=== PATIENT | female | born 1980 | race Caucasian/White ===

== ENCOUNTER 2017-08-28 21:26 | Emergency (ER) | payer MEDICARE, MEDICAID ==
[2017-08-28] MEDS ORDERED: Adacel (T-DAP) 0.5 ML VIAL ONE (21:35)
[2017-08-28] MEDS ORDERED: Erythromycin Base 0.5% Oint 1 GM TUBE ONE (22:03)
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
== END 2017-08-28 22:24 ==
LOC: ERS 21:26
DX: S01.01XA Laceration without foreign body of scalp, initial encounter (principal); H10.213 Acute toxic conjunctivitis, bilateral; Z23 Encounter for immunization; F32.9 Major depressive disorder, single episode, unspecified; F17.210 Nicotine dependence, cigarettes, uncomplicated; F43.10 Post-traumatic stress disorder, unspecified; Z79.899 Other long term (current) drug therapy; Y00.XXXA Assault by blunt object, initial encounter; Y92.149 Unspecified place in prison as the place of occurrence of the external cause
CPT/HCPCS: 12011; 70450; 72125; 90471; 90715; 99406; G0390

== ENCOUNTER 2018-06-09 15:57 | Emergency (ER) | payer MEDICAID, MEDICARE, SELFPAY ==
--- NOTE | 2018-06-09 17:15 | RAD ---
PORTABLE AP CHEST X-RAY 06/09/18 HISTORY: Chest pain for two hours. COMPARISON: 02/18/16. FINDINGS: A CT injectable right internal jugular vein Mediport catheter is in place with tip overlying the dist al SVC. The cardiac silhouette and pulmonary vasculature are within normal limits. The lungs are tyesha r. Osseous structures are intact. There has been no other interval change from prior exam. IMPRESSION: No acute cardiopulmonary process. POS: [facility]
[2018-06-09 17:41] LABS: #Basophils 0.1 thou/uL (0.0-0.2); #Eosinphils 0.1 thou/uL (0.0-0.7); #Lymphocytes 3.2 thou/uL (1.20-3.40); #Monocytes 0.8 thou/uL (0.11-0.59); #Neutrophils 4.2 thou/uL (1.40-6.50); %Eosinophils 0.7 % (0.0-10.0); %Neutrophils 50.4 % (42.0-75.0); Hemoglobin 13.2 g/dL (12.0-16.0); Mean Corpuscular Hemoglobin 35.4 pg (27.0-31.0); Mean Platelet Volume 8.4 fL (7.4-10.4); Platelet Count 291 thou/uL (130-400); RBC Distribution Width 11.3 % (11.5-14.5); Red Blood Cell (RBC) Count 3.73 mill/uL (4.20-5.40); White Blood Cell (WBC) Count 8.3 thou/uL (4.8-10.8)
[2018-06-09 17:58] LABS: ALT (SGPT) 7 U/L (8-55); AST (SGOT) 18 U/L (5-34); Albumin 4.5 g/dL (3.5-5.0); Alkaline Phosphatase 53 U/L (40-150); Anion Gap 11 mmol/L (10-20); BUN (Urea Nitrogen) 11 mg/dL (7.0-18.7); Bilirubin, Total 0.3 mg/dL (0.2-1.2); Calc. Creatinine Clearance 0 mL/min (70-130); Calcium 9.9 mg/dL (7.8-10.44); Carbon Dioxide 24 mmol/L (22-29); Chloride 106 mmol/L (98-107); Estimated GFR-MDRD 80; Globulin 3.2 g/dL (2.4-3.5); Glucose 91 mg/dL (70-105); Potassium 3.8 mmol/L (3.5-5.1); Protein, Total 7.7 g/dL (6.0-8.3); Sodium 137 mmol/L (136-145)
[2018-06-09 18:03] LABS: CKMB 1.5 ng/mL (0-6.6); Troponin I Less than 0.010 ng/mL (< 0.028)
[2018-06-09 18:44] LABS: Acetaminophen Less than 6.0 mcg/mL (10.0-30.0); Alcohol Less than 10 mg/dL (Less than 10); Salicylate Less than 8.0 mg/dL (15.0-30.0)
[2018-06-09 19:36] LABS: Amphetamine Not Detected (NotDetected); Barbiturates Screen Not Detected (NotDetected); Benzodiazepine Screen Not Detected (NotDetected); Cocaine Metabolite Screen Not Detected (NotDetected); Medtox Control Line Valid? VALID (VALID); Medtox Reader # READER 1; Methadone Not Detected (NotDetected); Methamphetamine Not Detected (NotDetected); Opiate Screen Not Detected (NotDetected); Oxycodone Screen Not Detected (NotDetected); Phencyclidine (PCP) Not Detected (NotDetected); THC/Cannabinoid Screen Not Detected (NotDetected); Tricyclic Screen Not Detected (NotDetected)
[2018-06-09 19:52] LABS: Bilirubin Negative (Negative); Blood, Urine Negative (Negative); Clarity CLEAR (Clear); Glucose, Urine (Dipstick) Negative (Negative); Leukocyte Negative (Negative); Nitrite Negative (Negative); Protein, Urine (Dipstick) Negative (Neg-Trace); Specific Gravity, Urine 1.005 (1.002-1.036); Urobilinogen 0.2 mg/dL (0.2-1.0); pH, Urine 6.5 (5.0-9.0)
[2018-06-09] MEDS ORDERED: Lidocaine Viscous Sol 2% 15 ml UD Cup ONE (20:24)
[2018-06-09] MEDS ORDERED: Mag-Al 1200 mg/1200 mg/30 ML UDCUP ONE (20:24)
--- NOTE | 2018-06-12 16:26 | EKG ---
Test Reason : CHESTPAIN Blood Pressure : / mmHG Vent. Rate : 086 BPM Atrial Rate : 086 BPM P-R Int : 086 ms QRS Dur : 084 ms QT Int : 360 ms P-R-T Axes : 033 079 072 degrees QTc Int : 430 ms Sinus rhythm with short NV Nonspecific T wave abnormality Abnormal ECG Confirmed by YUVAL HAMILTON ([id number]), international editorial producer JM OWEN ([id number]) on 06/12/2018 4:26:17 PM Referred By: JOY Confirmed By:YUVAL HAMILTON
== END 2018-06-09 23:11 | disposition home or self-care (01) ==
LOC: EEVIPCON 15:57 → ERS 15:57
DX: R07.9 Chest pain, unspecified (principal); F31.9 Bipolar disorder, unspecified; E03.9 Hypothyroidism, unspecified; J45.909 Unspecified asthma, uncomplicated; F17.210 Nicotine dependence, cigarettes, uncomplicated; Z79.899 Other long term (current) drug therapy
CPT/HCPCS: 36415; 71045; 80053; 80306; 80307; 81003; 82553; 84443; 84484; 85025; 93005

== ENCOUNTER 2018-06-26 10:10 | Emergency (ER) | payer SELFPAY ==
[2018-06-26 11:40] LABS: #Basophils 0.1 thou/uL (0.0-0.2); #Eosinphils 0.1 thou/uL (0.0-0.7); #Lymphocytes 1.5 thou/uL (1.20-3.40); #Monocytes 0.7 thou/uL (0.11-0.59); #Neutrophils 3.7 thou/uL (1.40-6.50); %Basophils 0.9 % (0.0-1.0); %Eosinophils 2.1 % (0.0-10.0); %Lymphocytes 24.6 % (21.0-51.0); %Monocytes 11.4 % (0.0-10.0); Hemoglobin 11.9 g/dL (12.0-16.0); Mean Corpuscular HGB CONC 34.7 g/dL (32.0-36.0); Mean Corpuscular Hemoglobin 35.5 pg (27.0-31.0); Mean Platelet Volume 7.9 fL (7.4-10.4); Platelet Count 336 thou/uL (130-400); RBC Distribution Width 11.2 % (11.5-14.5); Red Blood Cell (RBC) Count 3.35 mill/uL (4.20-5.40); White Blood Cell (WBC) Count 6.1 thou/uL (4.8-10.8)
[2018-06-26 11:56] LABS: ALT (SGPT) 17 U/L (8-55); AST (SGOT) 36 U/L (5-34); Acetaminophen Less than 6.0 mcg/mL (10.0-30.0); Albumin 3.5 g/dL (3.5-5.0); Alcohol Less than 10 mg/dL (Less than 10); Alkaline Phosphatase 55 U/L (40-150); Anion Gap 10 mmol/L (10-20); BUN (Urea Nitrogen) 8 mg/dL (7.0-18.7); Bilirubin, Total 0.2 mg/dL (0.2-1.2); CK (CPK) 673 U/L (29-168); Calc. Creatinine Clearance 0 mL/min (70-130); Calcium 8.6 mg/dL (7.8-10.44); Carbon Dioxide 20 mmol/L (22-29); Chloride 110 mmol/L (98-107); Estimated GFR-MDRD 67; Globulin 2.8 g/dL (2.4-3.5); Glucose 112 mg/dL (70-105); Lipase 30 U/L (8-78); Potassium 3.2 mmol/L (3.5-5.1); Protein, Total 6.3 g/dL (6.0-8.3); Salicylate Less than 8.0 mg/dL (15.0-30.0); Sodium 137 mmol/L (136-145)
[2018-06-26 11:56] LABS: Bilirubin Negative (Negative); Blood, Urine Negative (Negative); Clarity TURBID (Clear); Glucose, Urine (Dipstick) Negative (Negative); Leukocyte Negative (Negative); Nitrite Negative (Negative); Protein, Urine (Dipstick) Negative (Neg-Trace); Specific Gravity, Urine 1.009 (1.002-1.036); Urobilinogen 0.2 mg/dL (0.2-1.0)
[2018-06-26 11:59] LABS: CKMB 6.6 ng/mL (0-6.6); Troponin I Less than 0.010 ng/mL (< 0.028)
--- NOTE | 2018-06-26 12:37 | RAD ---
FRONTAL VIEW CHEST: Date: 06/26/18 COMPARISON: 06/09/18. CLINICAL HISTORY: Weakness. FINDINGS: Right-sided venous port is again seen. Density from presumed overlying breast implants overlies the l ower chest bilaterally. There is no lobar consolidation, discrete pneumothorax, or evidence of pleura l effusion. IMPRESSION: No focal consolidation. POS: [facility]
== END 2018-06-26 14:16 | disposition home or self-care (01) ==
LOC: ERS 10:10
DX: R53.1 Weakness (principal); R11.2 Nausea with vomiting, unspecified; Z71.6 Tobacco abuse counseling; E03.9 Hypothyroidism, unspecified; J45.909 Unspecified asthma, uncomplicated; F43.10 Post-traumatic stress disorder, unspecified; F17.210 Nicotine dependence, cigarettes, uncomplicated; F31.9 Bipolar disorder, unspecified; Z79.899 Other long term (current) drug therapy
CPT/HCPCS: 71045; 80053; 80307; 81003; 82550; 82553; 83690; 83880; 84484; 85025; 93005; 96360; 96361; 99406; J1642

== ENCOUNTER 2018-06-26 17:16 | Inpatient (IN) | payer MEDICARE, SELFPAY ==
[2018-06-26] MEDS ORDERED: Activated Charcoal/Sorbitol 25 GM/120 ML TUBE ONE (17:29)
[2018-06-26 18:35] LABS: #Eosinphils 0.1 thou/uL (0.0-0.7); #Lymphocytes 2.3 thou/uL (1.20-3.40); #Monocytes 0.9 thou/uL (0.11-0.59); %Basophils 0.7 % (0.0-1.0); %Eosinophils 2.3 % (0.0-10.0); %Lymphocytes 35.2 % (21.0-51.0); %Monocytes 14.3 % (0.0-10.0); %Neutrophils 47.5 % (42.0-75.0); Hemoglobin 11.2 g/dL (12.0-16.0); Mean Corpuscular HGB CONC 34.8 g/dL (32.0-36.0); Mean Corpuscular Hemoglobin 35.9 pg (27.0-31.0); Mean Platelet Volume 8.1 fL (7.4-10.4); Platelet Count 344 thou/uL (130-400); RBC Distribution Width 11.1 % (11.5-14.5); Red Blood Cell (RBC) Count 3.13 mill/uL (4.20-5.40); White Blood Cell (WBC) Count 6.4 thou/uL (4.8-10.8)
[2018-06-26 18:52] LABS: Bilirubin Negative (Negative); Blood, Urine Negative (Negative); Clarity CLEAR (Clear); Glucose, Urine (Dipstick) Negative (Negative); Leukocyte Negative (Negative); Nitrite Negative (Negative); Protein, Urine (Dipstick) Negative (Neg-Trace); Specific Gravity, Urine 1.006 (1.002-1.036); Urobilinogen 0.2 mg/dL (0.2-1.0); pH, Urine 6.5 (5.0-9.0)
[2018-06-26 19:02] LABS: Amphetamine Not Detected (NotDetected); Barbiturates Screen Not Detected (NotDetected); Benzodiazepine Screen Not Detected (NotDetected); Cocaine Metabolite Screen Not Detected (NotDetected); Medtox Control Line Valid? VALID (VALID); Medtox Reader # READER 4; Methadone Not Detected (NotDetected); Methamphetamine Not Detected (NotDetected); Opiate Screen Not Detected (NotDetected); Oxycodone Screen Not Detected (NotDetected); Phencyclidine (PCP) Not Detected (NotDetected); THC/Cannabinoid Screen Not Detected (NotDetected); Tricyclic Screen Not Detected (NotDetected)
[2018-06-26 19:04] LABS: ALT (SGPT) 18 U/L (8-55); AST (SGOT) 31 U/L (5-34); Acetaminophen Less than 6.0 mcg/mL (10.0-30.0); Albumin 3.3 g/dL (3.5-5.0); Alcohol Less than 10 mg/dL (Less than 10); Alkaline Phosphatase 51 U/L (40-150); Anion Gap 13 mmol/L (10-20); BUN (Urea Nitrogen) 5 mg/dL (7.0-18.7); Bilirubin, Total Less than 0.2 mg/dL (0.2-1.2); Calc. Creatinine Clearance 0 mL/min (70-130); Calcium 8.5 mg/dL (7.8-10.44); Carbon Dioxide 19 mmol/L (22-29); Chloride 111 mmol/L (98-107); Estimated GFR-MDRD 72; Globulin 2.7 g/dL (2.4-3.5); Glucose 92 mg/dL (70-105); Potassium 2.9 mmol/L (3.5-5.1); Salicylate Less than 8.0 mg/dL (15.0-30.0); Sodium 140 mmol/L (136-145)
[2018-06-26] MEDS ORDERED: Potassium Chloride 20 MEQ TAB ONE (20:28)
[2018-06-26] MEDS ORDERED: Ondansetron HCl/PF 4 MG/2 ML Vial ONE (21:47)
[2018-06-26] MEDS ORDERED: Morphine 2 MG/ML SYRINGE SLOW IVP SCH (22:45)
[2018-06-26] MEDS ORDERED: Potassium Chloride 20 MEQ in Premix Bag 1 BAG IVPB SCH (22:45)
[2018-06-26 22:49] VITALS: BMI 28.8
[2018-06-26] MEDS ORDERED: Sodium Chloride 0.9% 10 ML ONE (23:19)
[2018-06-26] MEDS ORDERED: Pantoprazole 40 MG VIAL IVP SCH (23:30)
[2018-06-27 06:06] LABS: #Basophils 0.1 thou/uL (0.0-0.2); #Eosinphils 0.7 thou/uL (0.0-0.7); #Lymphocytes 3.3 thou/uL (1.20-3.40); #Monocytes 0.8 thou/uL (0.11-0.59); #Neutrophils 3.6 thou/uL (1.40-6.50); %Basophils 0.8 % (0.0-1.0); %Eosinophils 8.6 % (0.0-10.0); %Lymphocytes 38.7 % (21.0-51.0); %Monocytes 9.6 % (0.0-10.0); %Neutrophils 42.3 % (42.0-75.0); Hemoglobin 10.8 g/dL (12.0-16.0); Mean Corpuscular HGB CONC 33.7 g/dL (32.0-36.0); Mean Corpuscular Hemoglobin 34.9 pg (27.0-31.0); Mean Platelet Volume 8.1 fL (7.4-10.4); Platelet Count 346 thou/uL (130-400); RBC Distribution Width 11.3 % (11.5-14.5); White Blood Cell (WBC) Count 8.6 thou/uL (4.8-10.8)
[2018-06-27 06:20] LABS: Anion Gap 10 mmol/L (10-20); BUN (Urea Nitrogen) 4 mg/dL (7.0-18.7); Calc. Creatinine Clearance 93 mL/min (70-130); Calcium 7.7 mg/dL (7.8-10.44); Carbon Dioxide 19 mmol/L (22-29); Chloride 115 mmol/L (98-107); Estimated GFR-MDRD 60; Glucose 99 mg/dL (70-105); Sodium 141 mmol/L (136-145)
[2018-06-27] MEDS ORDERED: Potassium Chloride 20 MEQ TAB PO SCH (08:00)
[2018-06-27 08:27] LABS: Magnesium 1.7 mg/dL (1.6-2.6); Phosphorus 2.4 mg/dL (2.3-4.7)
[2018-06-27] MEDS: Pantoprazole 40 MG VIAL IVP SCH ×2 (08:37→20:47)
[2018-06-27] MEDS ORDERED: Potassium Chloride 20 MEQ in Premix Bag 1 BAG IVPB SCH (09:00)
--- NOTE | 2018-06-27 15:12 | PDOC.EVN ---
Event Note - Event Note Event Note: pt seen and examined doing well. will continue to monitor. will also consult Mental health.
[2018-06-27] MEDS ORDERED: Atenolol 50 MG TAB PO SCH (20:15)
[2018-06-27] MEDS: busPIRone HCl 10 MG TAB PO SCH (20:45)
[2018-06-27] MEDS: ALPRAZolam 1 MG TAB PO PRN (20:46)
[2018-06-27] MEDS: Divalproex Sodium DR 500 MG TAB PO SCH (20:46)
[2018-06-27] MEDS: Citalopram 20 MG TAB PO SCH (20:46)
[2018-06-28] MEDS ORDERED: Levothyroxine Sodium 100 MCG TAB PO SCH (06:00)
[2018-06-28] MEDS: Lisinopril 20 MG TAB PO SCH (08:20)
[2018-06-28] MEDS: Pantoprazole 40 MG VIAL IVP SCH ×2 (08:21→22:32)
[2018-06-28] MEDS: busPIRone HCl 10 MG TAB PO SCH ×2 (08:21→20:23)
[2018-06-28] MEDS: Atenolol 50 MG TAB PO SCH (08:21)
[2018-06-28] MEDS: ALPRAZolam 1 MG TAB PO PRN ×2 (08:31→16:52)
[2018-06-28 12:09] LABS: #Basophils 0.1 thou/uL (0.0-0.2); #Eosinphils 0.3 thou/uL (0.0-0.7); #Lymphocytes 2.4 thou/uL (1.20-3.40); #Monocytes 0.2 thou/uL (0.11-0.59); #Neutrophils 4.8 thou/uL (1.40-6.50); %Basophils 1.2 % (0.0-1.0); %Eosinophils 4.3 % (0.0-10.0); %Lymphocytes 31.1 % (21.0-51.0); %Monocytes 2.9 % (0.0-10.0); %Neutrophils 60.5 % (42.0-75.0); Hemoglobin 10.8 g/dL (12.0-16.0); Mean Corpuscular HGB CONC 33.7 g/dL (32.0-36.0); Mean Corpuscular Hemoglobin 34.3 pg (27.0-31.0); Mean Platelet Volume 7.2 fL (7.4-10.4); Platelet Count 402 thou/uL (130-400); RBC Distribution Width 11.4 % (11.5-14.5); Red Blood Cell (RBC) Count 3.16 mill/uL (4.20-5.40); White Blood Cell (WBC) Count 7.9 thou/uL (4.8-10.8)
[2018-06-28 12:41] LABS: Anion Gap 11 mmol/L (10-20); BUN (Urea Nitrogen) Less than 4 mg/dL (7.0-18.7); Calc. Creatinine Clearance 129 mL/min (70-130); Calcium 8.3 mg/dL (7.8-10.44); Carbon Dioxide 22 mmol/L (22-29); Chloride 112 mmol/L (98-107); Estimated GFR-MDRD 87; Glucose 105 mg/dL (70-105); Potassium 3.2 mmol/L (3.5-5.1); Sodium 142 mmol/L (136-145)
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
[2018-06-28] MEDS ORDERED: Potassium Chloride 20 MEQ in Premix Bag 1 BAG IVPB SCH (14:00)
--- NOTE | 2018-06-28 16:51 | PDOC.PN ---
- Subjective Encounter Start Date: 06/28/18 Encounter Start Time: 10:30 Subjective: pt up in bed no complains - Objective Resuscitation Status: Resuscitation Status FULL:Full Resuscitation Vital Signs & Weight: Vital Signs (12 hours) Temp Pulse Resp BP BP Pulse Ox 06/28/18 11:55 62 18 163/84 H 97 06/28/18 08:21 72 181/91 H 06/28/18 08:20 181/91 H 06/28/18 08:18 97.2 F L 72 18 181/91 H 98 06/28/18 08:00 98 Weight Weight 173 lb 4.8 oz I&O: 06/27/18 06/28/18 06/29/18 06:59 06:59 06:59 Intake Total 370 1560 Output Total 50 Balance 320 1560 Result Diagrams: 06/28/18 12:00 06/28/18 12:00 Phys Exam - Physical Examination Neck: no nodes, no JVD, supple, full ROM Respiratory: no wheezing, no rales, no rhonchi, wheezing present, clear to auscultation bilateral Cardiovascular: RRR, no significant murmur, no rub, gallop, irregular Gastrointestinal: soft, non-tender, no distention, positive bowel sounds Dx/Plan (1) Suicidal ideations Code(s): R45.851 - SUICIDAL IDEATIONS Status: Acute (2) Overdose Code(s): T50.901A - POISONING BY UNSP DRUG/MEDS/BIOL SUBST, ACCIDENTAL, INIT Status: Acute - Plan will replace K and continue to monitor -: mental health consulted * . Review of Systems - Review of Systems Respiratory: negative: Cough, Dry, Shortness of Breath, Hemoptysis, SOB with Excertion, Pleuritic Pain, Sputum, Wheezing Cardiovascular: negative: chest pain, palpitations, orthopnea, paroxysmal nocturnal dyspnea, edema, light headedness, other Gastrointestinal: negative: Nausea, Vomiting, Abdominal Pain, Diarrhea, Constipation, Melena, Hematochezia, Other Genitourinary: negative: Dysuria, Frequency, Incontinence, Hematuria, Retention , Other - Medications/Allergies Allergies/Adverse Reactions: Allergies Allergy/AdvReac Type Severity Reaction Status Date / Time acetaminophen [From Tylenol] Allergy has liver Verified 06/26/18 23:06 tumor/hard on it adhesive Allergy Hives Verified 06/26/18 23:06 ketorolac tromethamine Allergy Hives Verified 06/26/18 23:06 [From Toradol] tramadol Allergy Hives Verified 06/26/18 23:06 Medications: Current Medications Alprazolam (Xanax) 2 mg PO Q8H PRN PRN Reason: Anxiety Last Admin: 06/28/18 08:31 Dose: 2 mg Atenolol (Tenormin) 50 mg PO DAILY [facility] Last Admin: 06/28/18 08:21 Dose: 50 mg Buspirone HCl (Buspar) 20 mg PO BID [facility] Last Admin: 06/28/18 08:21 Dose: 20 mg Citalopram Hydrobromide (Celexa) 20 mg PO HS [facility] Last Admin: 06/27/18 20:46 Dose: 20 mg Divalproex Sodium (Depakote) 1,500 mg PO HS [facility] Last Admin: 06/27/18 20:46 Dose: 1,500 mg Potassium Chloride 20 meq/ (Device) 100 mls @ 50 mls/hr IVPB NOW [facility] Stop: 06/28/18 18:00 Last Admin: 06/28/18 14:23 Dose: 100 mls Lisinopril (Zestril) 40 mg PO DAILY [facility] Last Admin: 06/28/18 08:20 Dose: 40 mg Pantoprazole Sodium (Protonix) 40 mg IVP Q12HR [facility] Last Admin: 06/28/18 08:21 Dose: 40 mg
--- NOTE | 2018-06-28 16:52 | PDOC.PN ---
- Subjective Encounter Start Date: 06/27/18 Encounter Start Time: 11:03 Subjective: pt up in bed no complains - Objective Resuscitation Status: Resuscitation Status FULL:Full Resuscitation Vital Signs & Weight: Vital Signs (12 hours) Temp Pulse Resp BP BP Pulse Ox 06/28/18 16:00 98.8 F 69 20 97 06/28/18 11:55 62 18 163/84 H 97 06/28/18 08:21 72 181/91 H 06/28/18 08:20 181/91 H 06/28/18 08:18 97.2 F L 72 18 181/91 H 98 06/28/18 08:00 98 Weight Weight 173 lb 4.8 oz I&O: 06/27/18 06/28/18 06/29/18 06:59 06:59 06:59 Intake Total 370 1560 Output Total 50 Balance 320 1560 Result Diagrams: 06/28/18 12:00 06/28/18 12:00 Phys Exam - Physical Examination Neck: no nodes, no JVD, supple, full ROM Respiratory: no wheezing, no rales, no rhonchi, wheezing present, clear to auscultation bilateral Cardiovascular: RRR, no significant murmur, no rub, gallop, irregular Gastrointestinal: soft, non-tender, no distention, positive bowel sounds Dx/Plan (1) Suicidal ideations Code(s): R45.851 - SUICIDAL IDEATIONS Status: Acute (2) Overdose Code(s): T50.901A - POISONING BY UNSP DRUG/MEDS/BIOL SUBST, ACCIDENTAL, INIT Status: Acute - Plan will replace K if creatinine is stable in am will consult Mental health -: continue ppi * . Review of Systems - Review of Systems Respiratory: negative: Cough, Dry, Shortness of Breath, Hemoptysis, SOB with Excertion, Pleuritic Pain, Sputum, Wheezing Cardiovascular: negative: chest pain, palpitations, orthopnea, paroxysmal nocturnal dyspnea, edema, light headedness, other Gastrointestinal: negative: Nausea, Vomiting, Abdominal Pain, Diarrhea, Constipation, Melena, Hematochezia, Other Genitourinary: negative: Dysuria, Frequency, Incontinence, Hematuria, Retention , Other - Medications/Allergies Allergies/Adverse Reactions: Allergies Allergy/AdvReac Type Severity Reaction Status Date / Time acetaminophen [From Tylenol] Allergy has liver Verified 06/26/18 23:06 tumor/hard on it adhesive Allergy Hives Verified 06/26/18 23:06 ketorolac tromethamine Allergy Hives Verified 06/26/18 23:06 [From Toradol] tramadol Allergy Hives Verified 06/26/18 23:06 Medications: Current Medications Alprazolam (Xanax) 2 mg PO Q8H PRN PRN Reason: Anxiety Last Admin: 06/28/18 08:31 Dose: 2 mg Atenolol (Tenormin) 50 mg PO DAILY [facility] Last Admin: 06/28/18 08:21 Dose: 50 mg Buspirone HCl (Buspar) 20 mg PO BID [facility] Last Admin: 06/28/18 08:21 Dose: 20 mg Citalopram Hydrobromide (Celexa) 20 mg PO HS [facility] Last Admin: 06/27/18 20:46 Dose: 20 mg Divalproex Sodium (Depakote) 1,500 mg PO HS [facility] Last Admin: 06/27/18 20:46 Dose: 1,500 mg Potassium Chloride 20 meq/ (Device) 100 mls @ 50 mls/hr IVPB NOW [facility] Stop: 06/28/18 18:00 Last Admin: 06/28/18 14:23 Dose: 100 mls Lisinopril (Zestril) 40 mg PO DAILY [facility] Last Admin: 06/28/18 08:20 Dose: 40 mg Pantoprazole Sodium (Protonix) 40 mg IVP Q12HR [facility] Last Admin: 06/28/18 08:21 Dose: 40 mg
[2018-06-28] MEDS: Citalopram 20 MG TAB PO SCH (20:23)
[2018-06-28] MEDS ORDERED: ALPRAZolam 1 MG TAB PO SCH (20:45)
[2018-06-28] MEDS ORDERED: Nicotine 21 MG PATCH TOP SCH (21:15)
[2018-06-28] MEDS ORDERED: Zolpidem Tartrate 5 MG TAB PO SCH (21:30)
[2018-06-28] MEDS: Divalproex Sodium DR 500 MG TAB PO SCH (21:31)
[2018-06-29] MEDS ORDERED: Levothyroxine Sodium 75 MCG TAB PO SCH (06:00)
[2018-06-29] MEDS: Pantoprazole 40 MG VIAL IVP SCH (08:40)
[2018-06-29 08:53] VITALS: BP 172/96; TEMP 98.2
[2018-06-29] MEDS: Atenolol 50 MG TAB PO SCH (08:53)
[2018-06-29] MEDS: ALPRAZolam 1 MG TAB PO PRN (08:54)
[2018-06-29] MEDS: Lisinopril 20 MG TAB PO SCH (08:54)
[2018-06-29] MEDS: busPIRone HCl 10 MG TAB PO SCH (08:54)
--- NOTE | 2018-06-29 23:40 | DIS ---
DATE OF ADMISSION: 06/26/2018 DATE OF DISCHARGE: 06/29/2018 DISCHARGE DIAGNOSES: 1. Suicidal ideation. 2. Overdose on ibuprofen. 3. Bipolar disorder. HOSPITAL COURSE: The patient is a very pleasant 37-year-old female who initially presented to the [facility] with overdosing by taking 80 pills of ibuprofen. Patient was recently seen by [facility] for her mental illness. The patient at that time continued to be stable and she actually was seen by [facility] and was okay to discharge the patient to inpatient psych facility. The patient will guillaume nue all her home medications and she will be discharged to inpatient psychiatric facility. Her vital signs on discharge was 98.2, 73, 16, 98% on room air, blood pressure was 158/90. I did not do a phy sical examination since the patient left before I was able to see her this morning. HOME MEDICATIONS: She will continue her home medications, lorazepam 2 mg q.8 hours p.r.n., atenolol 50 mg daily, Celexa 20 mg at bedtime, Depakote 1500 mg at bedtime, lisinopril 40 mg daily, BuSpar 20 mg b.i.d., and levothyroxine 120 mcg daily.
== END 2018-06-29 09:02 | DRG 918 ==
LOC: ERS 17:16 → 2NO 20:25
PROVIDERS: ADMIT Hospitalist; ATTEND Hospitalist
DX: T39.312A Poisoning by propionic acid derivatives, intentional self-harm, initial encounter (principal); E87.2 Acidosis; R45.851 Suicidal ideations; F90.9 Attention-deficit hyperactivity disorder, unspecified type; F43.10 Post-traumatic stress disorder, unspecified; E87.6 Hypokalemia; F31.9 Bipolar disorder, unspecified
CPT/HCPCS: 36415; 80048; 80306; 80307; 83735; 84100; 84439; 84443; 85025; 90471; 90686; 96361; 96374; C9113; G0008; J2270; J2405; J3480

== ENCOUNTER 2018-08-22 17:49 | Inpatient (IN) | payer MEDICARE ==
[2018-08-22 19:20] LABS: Pregnancy Test - Urine (BHCG) Negative (Negative); Pregu Control Background? CLEAR/WHITE (CLR/WHITE); Pregu Control Bar Appear? YES (CONTROL BAR); Specific Gravity 1.018 (1.002-1.036)
[2018-08-22 19:22] LABS: Hemoglobin 13.3 g/dL (12.0-16.0); Mean Corpuscular HGB CONC 34.5 g/dL (32.0-36.0); Mean Corpuscular Hemoglobin 33.5 pg (27.0-31.0); Mean Corpuscular Volume 97.1 fL (78.0-98.0); Mean Platelet Volume 8.4 fL (7.4-10.4); Platelet Count 184 thou/uL (130-400); RBC Distribution Width 12.2 % (11.5-14.5); Red Blood Cell (RBC) Count 3.97 mill/uL (4.20-5.40); White Blood Cell (WBC) Count 4.1 thou/uL (4.8-10.8)
[2018-08-22 19:24] LABS: Bilirubin Negative (Negative); Blood, Urine Negative (Negative); Clarity CLOUDY (Clear); Glucose, Urine (Dipstick) Negative (Negative); Leukocyte Negative (Negative); Nitrite Negative (Negative); Protein, Urine (Dipstick) Trace mg/dL (Neg-Trace); Specific Gravity, Urine 1.018 (1.002-1.036); Urobilinogen 0.2 mg/dL (0.2-1.0); pH, Urine 5.5 (5.0-9.0)
[2018-08-22 19:30] LABS: Amphetamine Detected (NotDetected); Barbiturates Screen Not Detected (NotDetected); Benzodiazepine Screen Detected (NotDetected); Cocaine Metabolite Screen Not Detected (NotDetected); Medtox Control Line Valid? VALID (VALID); Medtox Reader # READER 4; Methadone Not Detected (NotDetected); Methamphetamine Detected (NotDetected); Opiate Screen Not Detected (NotDetected); Oxycodone Screen Not Detected (NotDetected); Phencyclidine (PCP) Not Detected (NotDetected); THC/Cannabinoid Screen Not Detected (NotDetected); Tricyclic Screen Not Detected (NotDetected)
[2018-08-22 19:39] LABS: Acetaminophen Less than 6.0 mcg/mL (10.0-30.0); Alcohol Less than 10 mg/dL (Less than 10); Salicylate Less than 8.0 mg/dL (15.0-30.0)
[2018-08-22 19:41] LABS: ALT (SGPT) 11 U/L (8-55); AST (SGOT) 44 U/L (5-34); Albumin 4.2 g/dL (3.5-5.0); Alkaline Phosphatase 81 U/L (40-150); Anion Gap 16 mmol/L (10-20); BUN (Urea Nitrogen) 17 mg/dL (7.0-18.7); Bilirubin, Total 0.5 mg/dL (0.2-1.2); CK (CPK) 1376 U/L (29-168); Calc. Creatinine Clearance 0 mL/min (70-130); Calcium 9.3 mg/dL (7.8-10.44); Carbon Dioxide 22 mmol/L (22-29); Chloride 98 mmol/L (98-107); Estimated GFR-MDRD 49; Globulin 3.5 g/dL (2.4-3.5); Glucose 120 mg/dL (70-105); Potassium 3.1 mmol/L (3.5-5.1); Protein, Total 7.7 g/dL (6.0-8.3); Sodium 133 mmol/L (136-145)
[2018-08-22 19:59] LABS: Eosinophils 1 % (0-10); Lymphocytes 77 % (21-51); MDiff Complete? YES; Metamyelocyte 1 % (0-0); Monocytes 10 % (0-10); Neutrophil 11 % (42-75); PLT Morphology Comment Appears Adequate
[2018-08-22 21:56] LABS: Magnesium 1.8 mg/dL (1.6-2.6); Phosphorus 3.5 mg/dL (2.3-4.7)
--- NOTE | 2018-08-22 22:13 | RAD ---
PORTABLE AP CHEST X-RAY: 08/22/2018 HISTORY: Overdose. COMPARISON: 06/26/2018 FINDINGS: A right internal jugular vein CT injectable Mediport catheter remains in place. There is evidence of bilateral breast prostheses. The cardiac silhouette and pulmonary vasculature are within normal henry its. The lungs remain clear. There has been no interval change when compared to the prior exam. IMPRESSION: No acute cardiopulmonary process. POS: [facility]
[2018-08-22] MEDS ORDERED: Ondansetron PF 4 MG/2 ML Vial IVP PRN (23:00)
[2018-08-22] MEDS ORDERED: Ondansetron ODT 4 MG TAB SL PRN (23:00)
[2018-08-22] MEDS ORDERED: Sodium Chloride 0.9% 1,000 ML IV SCH (23:00)
[2018-08-23] MEDS ORDERED: Ondansetron PF 4 MG/2 ML Vial IVP PRN (01:03)
[2018-08-23] MEDS ORDERED: Ondansetron ODT 4 MG TAB PO PRN (01:03)
[2018-08-23] MEDS ORDERED: Senokot S 8.6-50 MG TAB PO PRN (01:03)
[2018-08-23] MEDS ORDERED: Calcium Carbonate 500 MG ChewTAB PO PRN (01:03)
--- NOTE | 2018-08-23 01:49 | HP ---
The patient was seen and examined on 08/22/2018. PRIMARY CARE DOCTOR: Kalie Pineda MD CHIEF COMPLAINT: Drug overdose. HISTORY OF PRESENT ILLNESS: The patient is a 37-year-old female with bipolar disorder as well as suicidal attempt in June of this year, presented to the emergency room with suicidal ideation. She apparently overdosed on Soma. At this time, not much information is available due to altered mentation. No family at the bedside. History obtained from the ER records. The patient's mother was present in the emergency room and reported that she was in a substance abuse program for 9 months. According to the mother, the patient has not been abusing drugs since May. The patient was with her friend earlier and had an argument. She then probably took all of her medications. It is unclear what medication she took. Per ER report, the patient took Soma. The patient denies any drug abuse. Again, due to current mentation, not much information is available from the patient. In the emergency room, her initial vital signs showed temperature 98.6, respirations 23, pulse rate of 101, blood pressure 97/72 with O2 saturation 95% on room air. EKG showed sinus tachycardia with NV interval of 98 milliseconds. She received IV fluids in the emergency room. Urine drug screen was positive for amphetamines, methamphetamines, and benzodiazepine. PAST MEDICAL HISTORY: 1. Bipolar disorder. 2. Depression. 3. Chronic pain syndrome. 4. Crohn disease. 5. Hypothyroidism. 6. History of liver tumor. 7. Endometriosis. 8. Asthma. 9. Posttraumatic stress disorder and history of hospitalization to psych facility. PAST SURGICAL HISTORY: 1. Cholecystectomy. 2. Hysterectomy. 3. Tonsillectomy. 4. Orthopedic surgeries. 5. Neck surgery. 6. Ovarian torsion surgery. CURRENT HOME MEDICATIONS: The patient is unable to recall any of her home medications. ALLERGIES: PATIENT IS ALLERGIC TO TYLENOL, TORADOL AND TRAMADOL. CURRENT HOME MEDICATIONS: Cannot be obtained from the patient due to current cognitive status. SOCIAL HISTORY: The patient has a history of drug abuse in the past. She currently lives at home with her family. She drinks alcohol socially. FAMILY HISTORY: Cannot be obtained due to current mentation. PHYSICAL EXAMINATION: VITAL SIGNS: As discussed above. GENERAL: A 37-year-old female with altered mentation. HEENT: Head; atraumatic, normocephalic. Sclerae anicteric. Moist mucous membranes. No oral lesion. NECK: Supple. No JVD appreciated. No carotid bruit. LUNGS: Clear to auscultation bilaterally. HEART: S1, S2 present. Regular rate and rhythm. ABDOMEN: Soft, nontender. Bowel sounds present. EXTREMITIES: No edema or calf tenderness. NEUROLOGIC: The patient is spontaneously moving all 4 extremities. She follows commands to some extent. Detailed neurological examination could not be done due to current cognitive status. PSYCHIATRY: As discussed above. SKIN: Warm and dry. LYMPH: No new palpable lymph nodes in the neck. PERIPHERAL VASCULAR: Radial pulses palpable bilaterally. MUSCULOSKELETAL: No joint swelling or tenderness. LABORATORY DATA: WBC 4.1 with hemoglobin 13.3, hematocrit 38.6, and platelets 184. Chemistries showed sodium 133, potassium 3.1, chloride of 98, bicarb 22, creatinine 1.24. Creatinine at baseline is 0.75. TSH 0.18. Free T4 in June was normal. Urine drug screen as discussed above. EKG by my review as discussed above. Chest x-ray by my review was negative for infiltrate. IMPRESSION: 1. Suicidal attempt. 2. Polysubstance abuse. Urine drug screen is positive for benzodiazepine, amphetamine, and methamphetamine. 3. Dehydration with acute kidney injury. 4. Hyponatremia/hypokalemia. 5. Anxiety, depression, posttraumatic disorder, as well as bipolar disorder. 6. History of suicidal attempt with ibuprofen in June of this year. 7. Chronic pain syndrome. 8. Crohn disease. 9. Hypothyroidism, on levothyroxine per previous records. 10. Mild intermittent asthma. PLAN: The patient will be monitored in the intermediate care unit. We will replace electrolytes. Continue IV hydration. We will hold all of her home medications for now until verified. Neuro checks. We will consult [facility] when medically stable. Sitter at the bedside. Suicide precautions. Plan of care was discussed with the patient in detail. We will discuss the plan of care with the family when they arrive. Job ID: [id number]
[2018-08-23] MEDS: NS 0.9% w/ 20 MEQ KCL 1,000 ML/1,000 ML BAG IV SCH ×4 (01:57→18:26)
[2018-08-23 02:32] VITALS: BMI 29.6
[2018-08-23 05:39] LABS: Anion Gap 9 mmol/L (10-20); BUN (Urea Nitrogen) 10 mg/dL (7.0-18.7); Calc. Creatinine Clearance 117 mL/min (70-130); Calcium 8.1 mg/dL (7.8-10.44); Carbon Dioxide 25 mmol/L (22-29); Chloride 107 mmol/L (98-107); Estimated GFR-MDRD 76; Glucose 110 mg/dL (70-105); Potassium 3.5 mmol/L (3.5-5.1); Sodium 137 mmol/L (136-145)
[2018-08-23] MEDS: Ibuprofen 200 MG TAB PO PRN ×3 (05:40→18:24)
[2018-08-23] MEDS ORDERED: Temazepam 15 MG CAP PO SCH (06:00)
[2018-08-23] MEDS ORDERED: Cepastat Lozenges 1 LOZ PO PRN (07:35)
[2018-08-23] MEDS ORDERED: Artificial Tears 18 DROP/0.9 ML EA EYE PRN (07:35)
[2018-08-23] MEDS ORDERED: Sodium Chloride 0.65% Nasal 44 ML BOT EA NARE PRN (07:35)
[2018-08-23] MEDS ORDERED: Loperamide HCl 2 MG CAP PO PRN (07:35)
[2018-08-23] MEDS ORDERED: Loratadine 10 MG TAB PO PRN (07:35)
[2018-08-23] MEDS ORDERED: Eucerin (Mineral Oil/Petrolatum,White) 30 gm Jar TOP PRN (07:35)
[2018-08-23] MEDS ORDERED: Lorazepam 1 MG TAB PO PRN (08:12)
[2018-08-23] MEDS: Lorazepam 2 MG/ML VIAL SLOW IVP PRN ×5 (09:12→21:29)
--- NOTE | 2018-08-23 09:53 | PDOC.PN ---
- Subjective Encounter Start Date: 08/23/18 Encounter Start Time: 08:15 -: old records requested/rev Patient seen and examined. No new complaints. No overnight events pt is anxious, crying - Objective Resuscitation Status - Order Detail: 08/23/18 01:03 Resuscitation Status Routine Resuscitation Status: FULL: Full Resuscitation MAR Reviewed: Yes Vital Signs & Weight: Vital Signs (12 hours) Temp Pulse Resp BP BP Pulse Ox 08/23/18 03:57 100.0 F H 113 H 20 104/66 100 08/23/18 00:00 98.8 F 105 H 20 149/84 H 100 08/22/18 22:50 97.8 F 108 H 20 136/83 136/83 98 Weight Admit Weight 177 lb 14.4 oz Weight 177 lb 14.4 oz I&O: 08/22/18 08/23/18 08/24/18 06:59 06:59 06:59 Intake Total 1735 Output Total 2200 Balance -465 Result Diagrams: 08/22/18 18:46 08/23/18 05:00 EKG Reviewed by me: Yes Phys Exam - Physical Examination Constitutional: NAD HEENT: PERRLA, moist MMs, sclera anicteric Neck: no JVD, supple Respiratory: no wheezing, no rales, no rhonchi Cardiovascular: RRR, no significant murmur, no rub Gastrointestinal: soft, non-tender, no distention, positive bowel sounds Musculoskeletal: no edema, pulses present Neurological: non-focal, normal sensation Lymphatic: no nodes Deviation from normal: anxious Skin: no rash, normal turgor Dx/Plan (1) Acute kidney injury Code(s): N17.9 - ACUTE KIDNEY FAILURE, UNSPECIFIED Status: Acute (2) Amphetamine abuse Code(s): F15.10 - OTHER STIMULANT ABUSE, UNCOMPLICATED Status: Acute (3) Drug overdose, intentional Code(s): T50.902A - POISONING BY UNSP DRUG/MEDS/BIOL SUBST, SELF-HARM, INIT Status: Acute (4) Hypokalemia Code(s): E87.6 - HYPOKALEMIA Status: Acute (5) Hyponatremia Code(s): E87.1 - HYPO-OSMOLALITY AND HYPONATREMIA Status: Acute (6) Rhabdomyolysis Code(s): M62.82 - RHABDOMYOLYSIS Status: Acute (7) Suicidal ideations Code(s): R45.851 - SUICIDAL IDEATIONS Status: Acute - Plan cont current plan of care * medication reviewed as below * symptomatic treatment * continue ivf * add ativan IV prn * repeat labs tomorrow * once stable will call [facility]. Review of Systems - Review of Systems ENT: negative: Ear Pain, Ear Discharge, Nose Pain, Nose Discharge, Nose Congestion, Mouth Pain, Mouth Swelling, Throat Pain, Throat Swelling, Other Respiratory: negative: Cough, Dry, Shortness of Breath, Hemoptysis, SOB with Excertion, Pleuritic Pain, Sputum, Wheezing Cardiovascular: negative: chest pain, palpitations, orthopnea, paroxysmal nocturnal dyspnea, edema, light headedness, other Gastrointestinal: negative: Nausea, Vomiting, Abdominal Pain, Diarrhea, Constipation, Melena, Hematochezia, Other Genitourinary: negative: Dysuria, Frequency, Incontinence, Hematuria, Retention , Other Musculoskeletal: negative: Neck Pain, Shoulder Pain, Arm Pain, Back Pain, Hand Pain, Leg Pain, Foot Pain, Other - Medications/Allergies Allergies/Adverse Reactions: Allergies Allergy/AdvReac Type Severity Reaction Status Date / Time acetaminophen [From Tylenol] Allergy has liver Verified 06/26/18 23:06 tumor/hard on it adhesive Allergy Hives Verified 06/26/18 23:06 ketorolac tromethamine Allergy Hives Verified 06/26/18 23:06 [From Toradol] tramadol Allergy Hives Verified 06/26/18 23:06 Medications: Current Medications Artificial Tears (Tears Naturale) 2 drop EA EYE PRN PRN PRN Reason: Dry Eyes Calcium Carbonate (Tums) 1,000 mg PO Q4H PRN PRN Reason: Heartburn or Indigestion Al Hydroxide/Mg Hydroxide 60 ml/ Lidocaine HCl 30 ml/Diphenhydramine HCl 75 mg 0 ml SSW Q6H PRN PRN Reason: Mouth Irritation Enoxaparin Sodium (Lovenox) 40 mg SC 2100 VALERIE Guaifenesin (Robitussin Sf) 200 mg PO Q4H PRN PRN Reason: Cough Potassium Chloride/Sodium Chloride (Ns 0.9% W/ 20 Meq Kcl) 1,000 ml in 1,000 mls @ 125 mls/hr IV .Q8H VALERIE Last Admin: 08/23/18 01:57 Dose: 1,000 mls Ibuprofen (Motrin) 400 mg PO Q6H PRN PRN Reason: Mild Pain (1-3) Last Admin: 08/23/18 05:40 Dose: 400 mg Loperamide HCl (Imodium) 2 mg PO PRN PRN PRN Reason: Diarrhea/Loose Stools Loratadine (Claritin) 10 mg PO DAILYPRN PRN PRN Reason: Sinus Symptoms Lorazepam (Ativan) 1 mg PO Q6H PRN PRN Reason: Anxiety Last Admin: 08/23/18 08:22 Dose: 1 mg Lorazepam (Ativan) 1 mg SLOW IVP Q4H PRN PRN Reason: Anxiety Last Admin: 08/23/18 09:12 Dose: 1 mg Mineral Oil/White Petrolatum (Eucerin Cream) 0 gm TOP BIDPRN PRN PRN Reason: Dry Skin Ondansetron HCl (Zofran Odt) 4 mg PO Q6H PRN PRN Reason: Nausea/Vomiting Ondansetron HCl (Zofran) 4 mg IVP Q6H PRN PRN Reason: Nausea/Vomiting Senna/Docusate Sodium (Senokot S) 2 tab PO BID PRN PRN Reason: Constipation Sodium Chloride (Flush - Normal Saline) 10 ml IVF PRN PRN PRN Reason: Saline Flush Sodium Chloride ([place] Nasal [place] 0.65%) 0 ml EA NARE QIDPRN PRN PRN Reason: Nasal Congestion Throat Lozenges (Cepastat Lozenges) 1 temo PO Q2H PRN PRN Reason: Sore Throat
[2018-08-23] MEDS: Aluminum & Magnesium Hydroxide 60 ML, Lidocaine 2% Viscous Solution 30 ML, diphenhydrAM... SSW PRN (10:20)
[2018-08-23] MEDS ORDERED: clonazePAM 0.5 MG TAB PO SCH (12:15)
[2018-08-23] MEDS: busPIRone HCl 10 MG TAB PO SCH (20:29)
[2018-08-23] MEDS ORDERED: cloNIDine 0.1 MG TAB PO SCH (20:30)
[2018-08-23] MEDS: clonazePAM 0.5 MG TAB PO SCH (20:30)
[2018-08-23] MEDS: Acetaminophen 500 MG TAB PO PRN (20:31)
[2018-08-23] MEDS: Enoxaparin Sodium 40 MG/0.4 ML SYRINGE SC SCH (20:31)
[2018-08-23] MEDS: Citalopram 20 MG TAB PO SCH (20:32)
--- NOTE | 2018-08-23 23:01 | CON ---
DATE OF CONSULTATION: HISTORY OF PRESENT ILLNESS: A 37-year-old female, who took apparently unknown quantity of Soma compound, presented to the hospital confused and agitated, was unable to give any history while in the ER. She was transferred to the MICU. They have been consulted regarding her care. She is extremely anxious, agitated this morning, feeling very nervous, ws very short of breath. She is coughing. She is aching all over. Extensive previous medical history is outlined in multiple medical records including most recently discharged from the hospital, June 27. Once again with the diagnosis of overdose. She has been to the [facility] for treatment. She has a primary care physician at [facility]. She has been smoking for most of her life with a diagnosis of chronic asthma, coughing, and wheezing from [id number]. Her past overdose was ibuprofen about 2 months ago. PAST MEDICAL HISTORY: Extensively as well outlined, pertinent for bipolar disorder, history of chronic asthma, history of tobacco abuse, history of major anxiety, history of hyperthyroidism, history of endometriosis, history of depression, history of apparently COLD syndrome, and history of chronic pain. PREVIOUS SURGERIES: Cholecystectomy, hysterectomy, tonsillectomy, orthopedic surgeries, neck surgery, fusion, and ovarian torsion. HOME MEDICATIONS: Which apparently the mother is going to bring includes, 1. Celexa 30. 2. Atenolol 50. 3. Xanax p.r.n. 4 mg. 4. BuSpar 30 b.i.d. 5. Lisinopril 40. 6. Levothyroxine 120. 7. Depakote 1500. ALLERGIES: TYLENOL, TORADOL, AND TRAMADOL. SOCIAL HISTORY: Presently, disabled. 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 Alcohol as noted. Tobacco as noted. REVIEW OF SYSTEMS: Otherwise, 10-point negative. PHYSICAL EXAMINATION: GENERAL: Extremely anxious, agitated. VITAL SIGNS: Saturations are on room air, respirations 22, pulse 110, temperature 98, blood pressure . CHEST: Bilateral wheezing. CARDIAC: Normal S1 and S2. No gallop. ABDOMEN: Soft. NEUROLOGIC: She is awake, responsive. LABORATORY DATA: Drug screen shows methamphetamine, amphetamine, benzos all detected. Alcohol level is less than 10. Chest x-ray showed no acute infiltrates. IMPRESSION: 1. Intentional overdose of Soma. 2. Multi-drug abuse including methamphetamine and amphetamine. 3. Chronic asthma, tobacco abuse, bipolar, chronic pain. PLAN: Restart home medication. Pulmonary graham, neb treatments, steroids. Will follow on MICU. She needs once again counseling and treatment at a Psych facility. Consultation note, 70 minutes, of which 50% in direct patient care. Job ID: [id number]
[2018-08-24] MEDS: Ibuprofen 200 MG TAB PO PRN ×2 (00:18→07:17)
[2018-08-24] MEDS: Aluminum & Magnesium Hydroxide 60 ML, Lidocaine 2% Viscous Solution 30 ML, diphenhydrAM... SSW PRN ×2 (00:20→20:03)
[2018-08-24] MEDS: NS 0.9% w/ 20 MEQ KCL 1,000 ML/1,000 ML BAG IV SCH ×3 (01:39→18:36)
[2018-08-24] MEDS: Lorazepam 2 MG/ML VIAL SLOW IVP PRN ×4 (01:40→22:22)
[2018-08-24] MEDS: Acetaminophen 500 MG TAB PO PRN ×3 (02:14→20:10)
[2018-08-24 06:14] LABS: Anion Gap 9 mmol/L (10-20); BUN (Urea Nitrogen) Less than 4 mg/dL (7.0-18.7); CK (CPK) 396 U/L (29-168); Calc. Creatinine Clearance 136 mL/min (70-130); Calcium 8.5 mg/dL (7.8-10.44); Carbon Dioxide 25 mmol/L (22-29); Chloride 108 mmol/L (98-107); Estimated GFR-MDRD 90; Glucose 116 mg/dL (70-105); Potassium 3.2 mmol/L (3.5-5.1); Sodium 139 mmol/L (136-145)
[2018-08-24 07:07] LABS: Band 3 % (5-11); Hemoglobin 10.6 g/dL (12.0-16.0); Lymphocytes 73 % (21-51); MDiff Complete? YES; Mean Corpuscular HGB CONC 33.8 g/dL (32.0-36.0); Mean Corpuscular Volume 97.7 fL (78.0-98.0); Mean Platelet Volume 8.5 fL (7.4-10.4); Monocytes 12 % (0-10); Neutrophil 6 % (42-75); Platelet Count 189 thou/uL (130-400); RBC Distribution Width 12.1 % (11.5-14.5); Reactive Lymphocytes 6 % (0-10); Red Blood Cell (RBC) Count 3.21 mill/uL (4.20-5.40); White Blood Cell (WBC) Count 2.5 thou/uL (4.8-10.8)
[2018-08-24] MEDS: Venlafaxine HCl XR 75 MG CAP PO SCH (08:21)
[2018-08-24] MEDS: clonazePAM 0.5 MG TAB PO SCH ×2 (08:21→20:04)
[2018-08-24] MEDS: busPIRone HCl 10 MG TAB PO SCH ×2 (08:21→20:04)
--- NOTE | 2018-08-24 09:39 | RAD ---
SINGLE VIEW OF THE CHEST: Comparison: 08-22-18 History: Fever. FINDINGS: Single view of the chest shows a normal sized cardiomediastinal silhouette. The Mediport is unchanged in position. There is no evidence of consolidation, mass, or pleural effusion. The bones are unremar kable. IMPRESSION: No evidence of acute cardiopulmonary disease. POS: [facility]
[2018-08-24] MEDS ORDERED: Potassium Chloride 20 MEQ TAB PO SCH (10:00)
--- NOTE | 2018-08-24 10:47 | PRG ---
DATE OF SERVICE: 08/24/2018 SUBJECTIVE: She is in overdose of Soma compound. This morning, she remains extremely agitated, but in no distress. OBJECTIVE: VITAL SIGNS: Temperature was 103, pulse was 122, respiratory rate 18, Agitated sweating. CHEST: Decreased breath sounds without any wheezing. CARDIAC: Normal S1 and S2. No gallops. ABDOMEN: No masses. LABORATORY DATA: White count 2.5, H and H 10 and 30, slight left shift. Lytes are normal. IMPRESSION: 1. Status post overdose of Soma. 2. Fever. 3. Cough. PLAN: CXR ordered,,r\o pneumonia. Clearly, her bronchospasm has improved substantially. We will follow. Job ID: [id number] [facility]
[2018-08-24] MEDS ORDERED: VANCOMYCIN IVPB PRN (11:00)
--- NOTE | 2018-08-24 11:43 | PDOC.PN ---
- Subjective Encounter Start Date: 08/24/18 Encounter Start Time: 08:30 -: old records requested/rev she has high grade fever, she is anxious, has sore mouth - Objective Resuscitation Status - Order Detail: 08/23/18 01:03 Resuscitation Status Routine Resuscitation Status: FULL: Full Resuscitation MAR Reviewed: Yes Vital Signs & Weight: Vital Signs (12 hours) Temp Pulse Resp BP BP Pulse Ox 08/24/18 07:00 103.0 F H 122 H 18 176/104 H 93 L 08/24/18 04:00 101 F H 119 H 24 H 141/91 H 93 L 08/24/18 00:02 99.5 F 24 L 24 H 130/91 H 95 Weight Admit Weight 177 lb 14.4 oz Weight 177 lb 14.4 oz I&O: 08/23/18 08/24/18 08/25/18 06:59 06:59 06:59 Intake Total 1735 10 Output Total 2200 Balance -465 10 Result Diagrams: 08/24/18 05:39 08/24/18 05:39 Phys Exam - Physical Examination Constitutional: NAD HEENT: PERRLA, moist MMs, sclera anicteric Neck: no JVD, supple Respiratory: no wheezing, no rales, no rhonchi Cardiovascular: RRR, no significant murmur, no rub Gastrointestinal: soft, non-tender, no distention, positive bowel sounds Musculoskeletal: no edema, pulses present Neurological: non-focal, normal sensation Lymphatic: no nodes Psychiatric: normal affect Skin: no rash, normal turgor Dx/Plan (1) Acute kidney injury Code(s): N17.9 - ACUTE KIDNEY FAILURE, UNSPECIFIED Status: Acute (2) Amphetamine abuse Code(s): F15.10 - OTHER STIMULANT ABUSE, UNCOMPLICATED Status: Acute (3) Drug overdose, intentional Code(s): T50.902A - POISONING BY UNSP DRUG/MEDS/BIOL SUBST, SELF-HARM, INIT Status: Acute (4) Hypokalemia Code(s): E87.6 - HYPOKALEMIA Status: Acute (5) Hyponatremia Code(s): E87.1 - HYPO-OSMOLALITY AND HYPONATREMIA Status: Acute (6) Rhabdomyolysis Code(s): M62.82 - RHABDOMYOLYSIS Status: Acute (7) Suicidal ideations Code(s): R45.851 - SUICIDAL IDEATIONS Status: Acute (8) Sepsis Code(s): A41.9 - SEPSIS, UNSPECIFIED ORGANISM Status: Acute - Plan cont current plan of care, continue antibiotics * do blood culture, urine culture, get chest xray * start empiric rocephin and vancomycin * do blood culture from port * medication reviewed as below * symptomatic treatment * CK improved * not medically stable for discharge. Review of Systems - Review of Systems Constitutional: fever. negative: chills, sweats, weakness, malaise, other ENT: negative: Ear Pain, Ear Discharge, Nose Pain, Nose Discharge, Nose Congestion, Mouth Pain, Mouth Swelling, Throat Pain, Throat Swelling, Other Respiratory: negative: Cough, Dry, Shortness of Breath, Hemoptysis, SOB with Excertion, Pleuritic Pain, Sputum, Wheezing Cardiovascular: negative: chest pain, palpitations, orthopnea, paroxysmal nocturnal dyspnea, edema, light headedness, other Gastrointestinal: negative: Nausea, Vomiting, Abdominal Pain, Diarrhea, Constipation, Melena, Hematochezia, Other Genitourinary: negative: Dysuria, Frequency, Incontinence, Hematuria, Retention , Other Musculoskeletal: negative: Neck Pain, Shoulder Pain, Arm Pain, Back Pain, Hand Pain, Leg Pain, Foot Pain, Other Skin: negative: Rash, Lesions, [place], Bruising, Other - Medications/Allergies Allergies/Adverse Reactions: Allergies Allergy/AdvReac Type Severity Reaction Status Date / Time acetaminophen [From Tylenol] Allergy has liver Verified 06/26/18 23:06 tumor/hard on it adhesive Allergy Hives Verified 06/26/18 23:06 ketorolac tromethamine Allergy Hives Verified 06/26/18 23:06 [From Toradol] tramadol Allergy Hives Verified 06/26/18 23:06 Medications: Current Medications Acetaminophen (Tylenol) 1,000 mg PO Q6H PRN PRN Reason: TEMPERATURE Last Admin: 08/24/18 02:14 Dose: 1,000 mg Albuterol/Ipratropium (Duoneb) 3 ml NEB [id number] [facility] Last Admin: 08/24/18 07:19 Dose: Not Given Artificial Tears (Tears Naturale) 2 drop EA EYE PRN PRN PRN Reason: Dry Eyes Buspirone HCl (Buspar) 20 mg PO BID [facility] Last Admin: 08/24/18 08:21 Dose: 20 mg Calcium Carbonate (Tums) 1,000 mg PO Q4H PRN PRN Reason: Heartburn or Indigestion Citalopram Hydrobromide (Celexa) 20 mg PO HS [facility] Last Admin: 08/23/18 20:32 Dose: 20 mg Clonazepam (Klonopin) 0.5 mg PO BID [facility] Last Admin: 08/24/18 08:21 Dose: 0.5 mg Al Hydroxide/Mg Hydroxide 60 ml/ Lidocaine HCl 30 ml/Diphenhydramine HCl 75 mg 0 ml SSW Q6H PRN PRN Reason: Mouth Irritation Last Admin: 08/24/18 00:20 Dose: 15 ml Enoxaparin Sodium (Lovenox) 40 mg SC 2100 [facility] Last Admin: 08/23/18 20:31 Dose: 40 mg Guaifenesin (Robitussin Sf) 200 mg PO Q4H PRN PRN Reason: Cough Potassium Chloride/Sodium Chloride (Ns 0.9% W/ 20 Meq Kcl) 1,000 ml in 1,000 mls @ 125 mls/hr IV .Q8H [facility] Last Admin: 08/24/18 01:39 Dose: 1,000 mls Ceftriaxone Sodium 1 gm/ (Sodium Chloride) 100 mls @ 200 mls/hr IVPB 1200 VALERIE Ibuprofen (Motrin) 400 mg PO Q6H PRN PRN Reason: Mild Pain (1-3) Last Admin: 08/24/18 07:17 Dose: 400 mg Loperamide HCl (Imodium) 2 mg PO PRN PRN PRN Reason: Diarrhea/Loose Stools Loratadine (Claritin) 10 mg PO DAILYPRN PRN PRN Reason: Sinus Symptoms Lorazepam (Ativan) 1 mg PO Q6H PRN PRN Reason: Anxiety Last Admin: 08/23/18 08:22 Dose: 1 mg Lorazepam (Ativan) 2 mg SLOW IVP Q4H PRN PRN Reason: Anxiety Last Admin: 08/24/18 01:40 Dose: 2 mg Methylprednisolone Sodium Succinate (Solu-Medrol) 40 mg IVP DAILY [facility] Last Admin: 08/24/18 08:21 Dose: 40 mg Mineral Oil/White Petrolatum (Eucerin Cream) 0 gm TOP BIDPRN PRN PRN Reason: Dry Skin Miscellaneous Medication (Pharmacy To Dose) 1 each IVPB DAILYPRN PRN PRN Reason: LABS Ondansetron HCl (Zofran Odt) 4 mg PO Q6H PRN PRN Reason: Nausea/Vomiting Ondansetron HCl (Zofran) 4 mg IVP Q6H PRN PRN Reason: Nausea/Vomiting Potassium Chloride (K-Dur) 40 meq PO 1000 VALERIE Stop: 08/24/18 12:00 Senna/Docusate Sodium (Senokot S) 2 tab PO BID PRN PRN Reason: Constipation Sodium Chloride (Flush - Normal Saline) 10 ml IVF PRN PRN PRN Reason: Saline Flush Sodium Chloride ([place] Nasal [place] 0.65%) 0 ml EA NARE QIDPRN PRN PRN Reason: Nasal Congestion Throat Lozenges (Cepastat Lozenges) 1 temo PO Q2H PRN PRN Reason: Sore Throat Venlafaxine HCl (Effexor Xr) 75 mg PO DAILY [facility] Last Admin: 08/24/18 08:21 Dose: 75 mg
[2018-08-24] MEDS: cefTRIAXone\\ROCEPHIN 1 GM in Sodium Chloride 0.9% 100 ML IVPB SCH (12:49)
[2018-08-24] MEDS: Citalopram 20 MG TAB PO SCH (20:03)
[2018-08-24] MEDS: Enoxaparin Sodium 40 MG/0.4 ML SYRINGE SC SCH (20:05)
[2018-08-24] MEDS: Diabetic Tussin 200 MG/10 ML UDCUP PO PRN (20:10)
[2018-08-24] MEDS ORDERED: Vancomycin HCl 1.25 GM in Sodium Chloride 0.9% 250 ML 250 ML IVPB SCH (21:00)
[2018-08-25] MEDS: Vancomycin HCl 1.25 GM in Sodium Chloride 0.9% 250 ML 250 ML IVPB SCH ×3 (02:02→18:23)
[2018-08-25] MEDS: NS 0.9% w/ 20 MEQ KCL 1,000 ML/1,000 ML BAG IV SCH ×3 (02:08→18:12)
[2018-08-25] MEDS: Lorazepam 2 MG/ML VIAL SLOW IVP PRN ×3 (04:06→22:28)
[2018-08-25] MEDS: Acetaminophen 500 MG TAB PO PRN (04:14)
[2018-08-25] MEDS: Diabetic Tussin 200 MG/10 ML UDCUP PO PRN ×2 (04:14→18:16)
[2018-08-25] MEDS ORDERED: ALPRAZOLAM 4 MG PO PRN (08:11)
[2018-08-25] MEDS ORDERED: Levothyroxine Sodium 125 MCG TAB PO SCH (09:00)
[2018-08-25] MEDS: busPIRone HCl 10 MG TAB PO SCH ×2 (09:10→20:26)
[2018-08-25] MEDS: Venlafaxine HCl XR 75 MG CAP PO SCH (09:13)
[2018-08-25] MEDS: clonazePAM 0.5 MG TAB PO SCH ×2 (09:14→20:26)
[2018-08-25] MEDS ORDERED: Lorazepam 2 MG/ML VIAL SLOW IVP SCH (09:45)
[2018-08-25] MEDS: guaiFENesin ER 600 MG TAB PO SCH ×2 (09:49→20:27)
--- NOTE | 2018-08-25 09:56 | PRG ---
DATE OF SERVICE: 08/25/2018 SUBJECTIVE: Elif Kelly this morning is awake, alert, and responsive. Still coughing. OBJECTIVE: VITAL SIGNS: She still having difficulty breathing through her saturations are 97 on room air, respirations 20, temperature 97, blood pressure 144/86. CHEST: Decreased breath sounds. No wheezing. CARDIAC: Normal S1 and S2. No gallops. ABDOMEN: No mass. IMPRESSION: 1. Status post overdose. 2. Fever. Cultures negative. 3. Substance abuse. 4. Bipolar. PLAN: I would discontinue all antibiotics, switch her over to oral medication, eventually for placement in a psychiatric facility. Job ID: [id number]
--- NOTE | 2018-08-25 10:03 | PDOC.PN ---
- Subjective Encounter Start Date: 08/25/18 Encounter Start Time: 08:00 Patient seen and examined. No new complaints. No overnight events - Objective Resuscitation Status - Order Detail: 08/23/18 01:03 Resuscitation Status Routine Resuscitation Status: FULL: Full Resuscitation MAR Reviewed: Yes Vital Signs & Weight: Vital Signs (12 hours) Temp Pulse Resp BP Pulse Ox 08/25/18 08:00 97.5 F L 87 20 144/86 H 97 08/25/18 04:00 97.4 F L 94 18 142/77 H 98 08/25/18 00:03 98.1 F 94 16 166/92 H 97 Weight Admit Weight 177 lb 14.4 oz Weight 177 lb 14.4 oz I&O: 08/24/18 08/25/18 08/26/18 06:59 06:59 06:59 Intake Total 10 3230 Balance 10 3230 Result Diagrams: 08/24/18 05:39 08/24/18 05:39 Phys Exam - Physical Examination Constitutional: NAD HEENT: PERRLA, moist MMs, sclera anicteric Neck: no JVD, supple Respiratory: no wheezing, no rales, no rhonchi, clear to auscultation bilateral Cardiovascular: RRR, no significant murmur, no rub Gastrointestinal: soft, non-tender, no distention, positive bowel sounds Musculoskeletal: no edema, pulses present Neurological: non-focal, normal sensation Lymphatic: no nodes Psychiatric: normal affect, A&O x 3 Skin: no rash, normal turgor Dx/Plan (1) Acute kidney injury Code(s): N17.9 - ACUTE KIDNEY FAILURE, UNSPECIFIED Status: Acute (2) Amphetamine abuse Code(s): F15.10 - OTHER STIMULANT ABUSE, UNCOMPLICATED Status: Acute (3) Drug overdose, intentional Code(s): T50.902A - POISONING BY UNSP DRUG/MEDS/BIOL SUBST, SELF-HARM, INIT Status: Acute (4) Hypokalemia Code(s): E87.6 - HYPOKALEMIA Status: Acute (5) Hyponatremia Code(s): E87.1 - HYPO-OSMOLALITY AND HYPONATREMIA Status: Acute (6) Rhabdomyolysis Code(s): M62.82 - RHABDOMYOLYSIS Status: Acute (7) Suicidal ideations Code(s): R45.851 - SUICIDAL IDEATIONS Status: Acute (8) Sepsis Code(s): A41.9 - SEPSIS, UNSPECIFIED ORGANISM Status: Acute - Plan cont current plan of care, continue antibiotics * add mucinex * if afebrile today, will consider discharge to psych facility * medication reviewed as below * symptomatic treatment. Review of Systems - Review of Systems ENT: negative: Ear Pain, Ear Discharge, Nose Pain, Nose Discharge, Nose Congestion, Mouth Pain, Mouth Swelling, Throat Pain, Throat Swelling, Other Respiratory: negative: Cough, Dry, Shortness of Breath, Hemoptysis, SOB with Excertion, Pleuritic Pain, Sputum, Wheezing Cardiovascular: negative: chest pain, palpitations, orthopnea, paroxysmal nocturnal dyspnea, edema, light headedness, other Gastrointestinal: negative: Nausea, Vomiting, Abdominal Pain, Diarrhea, Constipation, Melena, Hematochezia, Other Genitourinary: negative: Dysuria, Frequency, Incontinence, Hematuria, Retention , Other Musculoskeletal: negative: Neck Pain, Shoulder Pain, Arm Pain, Back Pain, Hand Pain, Leg Pain, Foot Pain, Other - Medications/Allergies Allergies/Adverse Reactions: Allergies Allergy/AdvReac Type Severity Reaction Status Date / Time acetaminophen [From Tylenol] Allergy has liver Verified 06/26/18 23:06 tumor/hard on it adhesive Allergy Hives Verified 06/26/18 23:06 ketorolac tromethamine Allergy Hives Verified 06/26/18 23:06 [From Toradol] tramadol Allergy Hives Verified 06/26/18 23:06 Medications: Current Medications Acetaminophen (Tylenol) 1,000 mg PO Q6H PRN PRN Reason: TEMPERATURE Last Admin: 08/25/18 04:14 Dose: 1,000 mg Albuterol/Ipratropium (Duoneb) 3 ml NEB [id number] [facility] Last Admin: 08/25/18 07:34 Dose: Not Given Artificial Tears (Tears Naturale) 2 drop EA EYE PRN PRN PRN Reason: Dry Eyes Atenolol (Tenormin) 50 mg PO DAILY [facility] Buspirone HCl (Buspar) 20 mg PO BID [facility] Last Admin: 08/25/18 09:10 Dose: 20 mg Calcium Carbonate (Tums) 1,000 mg PO Q4H PRN PRN Reason: Heartburn or Indigestion Citalopram Hydrobromide (Celexa) 20 mg PO HS [facility] Last Admin: 08/24/18 20:03 Dose: 20 mg Clonazepam (Klonopin) 0.5 mg PO BID [facility] Last Admin: 08/25/18 09:14 Dose: Not Given Al Hydroxide/Mg Hydroxide 60 ml/ Lidocaine HCl 30 ml/Diphenhydramine HCl 75 mg 0 ml SSW Q6H PRN PRN Reason: Mouth Irritation Last Admin: 08/24/18 20:03 Dose: 15 ml Divalproex Sodium (Depakote) 1,500 mg PO HS [facility] Enoxaparin Sodium (Lovenox) 40 mg SC 2100 [facility] Last Admin: 08/24/18 20:05 Dose: 40 mg Guaifenesin (Robitussin Sf) 200 mg PO Q4H PRN PRN Reason: Cough Last Admin: 08/25/18 04:14 Dose: 200 mg Guaifenesin (Mucinex) 600 mg PO Q12HR [facility] Last Admin: 08/25/18 09:49 Dose: 600 mg Potassium Chloride/Sodium Chloride (Ns 0.9% W/ 20 Meq Kcl) 1,000 ml in 1,000 mls @ 125 mls/hr IV .Q8H [facility] Last Admin: 08/25/18 09:16 Dose: Not Given Ceftriaxone Sodium 1 gm/ (Sodium Chloride) 100 mls @ 200 mls/hr IVPB 1200 [facility] Last Admin: 08/24/18 12:49 Dose: 100 mls Vancomycin HCl 1.25 gm/ Sodium (Chloride) 250 mls @ 166.667 mls/hr IVPB 0200, 1000,1800 [facility] Last Admin: 08/25/18 09:16 Dose: 250 mls Ibuprofen (Motrin) 400 mg PO Q6H PRN PRN Reason: Mild Pain (1-3) Last Admin: 08/24/18 07:17 Dose: 400 mg Levothyroxine Sodium (Synthroid) 120 mcg PO DAILY [facility] Loperamide HCl (Imodium) 2 mg PO PRN PRN PRN Reason: Diarrhea/Loose Stools Loratadine (Claritin) 10 mg PO DAILYPRN PRN PRN Reason: Sinus Symptoms Lorazepam (Ativan) 2 mg SLOW IVP 0945 [facility] Stop: 08/25/18 11:00 Last Admin: 08/25/18 09:48 Dose: 2 mg Lorazepam (Ativan) 2 mg SLOW IVP Q6H PRN PRN Reason: ANXIETY. Mineral Oil/White Petrolatum (Eucerin Cream) 0 gm TOP BIDPRN PRN PRN Reason: Dry Skin Miscellaneous Medication (Pharmacy To Dose) 1 each IVPB DAILYPRN PRN PRN Reason: LABS Mometasone Furoate/Formoterol Fumar (Dulera 200 Mcg/5 Mcg Inhaler) 2 puff INH BID-RT [facility] Non-Formulary Medication (Alprazolam [Alprazolam]) 4 mg PO Q8HR PRN PRN Reason: Anxiety Ondansetron HCl (Zofran Odt) 4 mg PO Q6H PRN PRN Reason: Nausea/Vomiting Ondansetron HCl (Zofran) 4 mg IVP Q6H PRN PRN Reason: Nausea/Vomiting Prednisone (Prednisone) 20 mg PO [facility] Stop: 08/31/18 08:01 Senna/Docusate Sodium (Senokot S) 2 tab PO BID PRN PRN Reason: Constipation Sodium Chloride (Flush - Normal Saline) 10 ml IVF PRN PRN PRN Reason: Saline Flush Sodium Chloride ([place] Nasal [place] 0.65%) 0 ml EA NARE QIDPRN PRN PRN Reason: Nasal Congestion Throat Lozenges (Cepastat Lozenges) 1 temo PO Q2H PRN PRN Reason: Sore Throat Venlafaxine HCl (Effexor Xr) 75 mg PO DAILY [facility] Last Admin: 08/25/18 09:13 Dose: Not Given
--- NOTE | 2018-08-25 10:21 | PQF ---
EDDIE HOOKS, REJI SON MD [id number] -[id number] CLINICAL DOCUMENTATION IMPROVEMENT CLARIFICATION FORM: ICD-10 Updated PLEASE DO AN ADDENDUM TO THE PROGRESS NOTE WITH ANY DOCUMENTATION UPDATES OR ADDITIONS AND CARRY THROUGH TO DC SUMMARY. THANK YOU. DATE: 08/25 ATTN: DR. REJI SHIRLEY Please exercise your independent, professional judgment in responding to the clarification form. Clinical indicators are provided on the bottom of this form for your review. Diagnosis: SEPSIS (PN 08/24) Present on Admission (POA): [x ] Yes [ ] No [ ] Unable to determine Coding guidelines require hospitals to identify whether a diagnosis was present on admission (POA) or not. To accurately assign the appropriate POA indicator, this information must be clearly documented within the medical record. CLINICAL INDICATORS - SIGNS / SYMPTOMS / LABS PN 08/24: SHE HAD HIGH GRADE FEVER, SHE IS ANXIOUS, HAS SORE MOUTH: DX/PLAN: 8) SEPSIS, ACUTE; DO BLOOD CULTURE, URINE CULTURE, GET CXR; START EMPIRIC ROCEPHIN & VANCOMYCIN; DO BLOOD CULTURE FROM PORT RISK FACTORS: HIGH FEVER, TACHYCARDIA, TACHYPNEA (103.0, HR: 122, RR: 24; 08/24, 0700) WBC (4.1 ON ADMIT, 08/22) TREATMENT: IVF (08/23 - PRESENT) IV ANTIBIOTICS (ROCEPHIN & VANCOMYCIN 08/24 - PRESENT) THANK YOU! Annalise (This form is maintained as a part of the permanent medical record) 2014 [email or web address] All Rights Reserved Annalise Interiano RN, BSN [email or web address] Office: [phone] [facility]
[2018-08-25] MEDS ORDERED: ALPRAZOLAM 2 MG PO PRN (10:47)
[2018-08-25] MEDS: cefTRIAXone\\ROCEPHIN 1 GM in Sodium Chloride 0.9% 100 ML IVPB SCH (11:45)
[2018-08-25] MEDS: ALPRAZolam 1 MG TAB PO SCH ×2 (14:37→21:28)
[2018-08-25] MEDS: Atenolol 50 MG TAB PO SCH (14:38)
--- NOTE | 2018-08-25 15:44 | EKG ---
Test Reason : Blood Pressure : / mmHG Vent. Rate : 110 BPM Atrial Rate : 110 BPM P-R Int : 098 ms QRS Dur : 090 ms QT Int : 352 ms P-R-T Axes : 026 087 046 degrees QTc Int : 476 ms Sinus tachycardia with short IL Otherwise normal ECG Confirmed by DEMETRA MULTANI, HARMAN ([id number]), acquisition editor JM OWEN ([id number]) on 08/25/2018 3:43:59 PM Referred By: Confirmed By:HARMAN MCCRARY MD
[2018-08-25 17:21] LABS: Vancomycin, Trough 21.1 ug/mL
[2018-08-25] MEDS ORDERED: Vancomycin HCl 1.25 GM in Sodium Chloride 0.9% 250 ML 250 ML IVPB SCH (18:00)
[2018-08-25] MEDS: Mometasone/Formoterol 120 PUFF INHALER INH SCH (19:05)
[2018-08-25] MEDS: Citalopram 20 MG TAB PO SCH (20:26)
[2018-08-25] MEDS: Divalproex Sodium DR 500 MG TAB PO SCH (20:27)
[2018-08-25] MEDS: Enoxaparin Sodium 40 MG/0.4 ML SYRINGE SC SCH (20:28)
[2018-08-26] MEDS: NS 0.9% w/ 20 MEQ KCL 1,000 ML/1,000 ML BAG IV SCH (02:36)
[2018-08-26] MEDS: Vancomycin HCl 1.25 GM in Sodium Chloride 0.9% 250 ML 250 ML IVPB SCH ×3 (02:36→18:09)
[2018-08-26] MEDS: Diabetic Tussin 200 MG/10 ML UDCUP PO PRN ×2 (02:40→21:38)
[2018-08-26] MEDS: Lorazepam 2 MG/ML VIAL SLOW IVP PRN ×4 (04:47→22:13)
[2018-08-26] MEDS: ALPRAZolam 1 MG TAB PO SCH ×3 (05:46→21:37)
[2018-08-26] MEDS: Levothyroxine Sodium 125 MCG TAB PO SCH (05:46)
[2018-08-26] MEDS ORDERED: Levothyroxine Sodium 125 MCG TAB PO SCH (06:00)
[2018-08-26] MEDS: Mometasone/Formoterol 120 PUFF INHALER INH SCH ×2 (06:22→18:30)
[2018-08-26] MEDS: Atenolol 50 MG TAB PO SCH (08:31)
[2018-08-26] MEDS: predniSONE 20 MG TAB PO SCH (08:31)
[2018-08-26] MEDS: busPIRone HCl 10 MG TAB PO SCH ×2 (08:32→20:14)
[2018-08-26] MEDS: Venlafaxine HCl XR 75 MG CAP PO SCH (08:33)
[2018-08-26] MEDS: clonazePAM 0.5 MG TAB PO SCH ×2 (08:33→20:12)
[2018-08-26] MEDS: guaiFENesin ER 600 MG TAB PO SCH ×2 (08:33→20:15)
--- NOTE | 2018-08-26 10:37 | PRG ---
DATE OF SERVICE: 08/26/2018 SUBJECTIVE: This morning, she is awake, alert, and responsive. Still got a cough, but her temperature is only 98, pulse 62, respiratory rate 18, and blood pressure 157/90. Chest, decreased breath sounds. No wheezing. Cardiac, normal S1 and S2. No gallops. Abdomen, no masses. IMPRESSION: Respiratory failure, bronchitis, tobacco abuse, substance abuse, attempted overdose. LABORATORY DATA: All cultures are negative. The gram-positive reilly is probably contamination. PLAN:1 Would discontinue all antibiotics.no sign of sepsis or pneumonia,,2_ cough. 3 Disposition is placement. 4 Pulmonary is going to follow at a distance. Job ID: [id number] MTDD
--- NOTE | 2018-08-26 11:14 | PDOC.PN ---
- Subjective Encounter Start Date: 08/26/18 Encounter Start Time: 08:00 Patient seen and examined. No new complaints. No overnight events - Objective Resuscitation Status - Order Detail: 08/23/18 01:03 Resuscitation Status Routine Resuscitation Status: FULL: Full Resuscitation MAR Reviewed: Yes Vital Signs & Weight: Vital Signs (12 hours) Temp Pulse Resp BP BP Pulse Ox 08/26/18 08:46 98.2 F 62 18 151/79 H 95 08/26/18 08:00 95 08/26/18 05:00 98.7 F 75 18 162/83 H 96 Weight Admit Weight 177 lb 14.4 oz Weight 177 lb 14.4 oz I&O: 08/25/18 08/26/18 08/27/18 06:59 06:59 06:59 Intake Total 3230 5370 Balance 3230 5370 Result Diagrams: 08/24/18 05:39 08/24/18 05:39 Phys Exam - Physical Examination Constitutional: NAD HEENT: PERRLA, moist MMs, sclera anicteric Neck: no JVD, supple Respiratory: no wheezing, no rales, no rhonchi Cardiovascular: RRR, no significant murmur, no rub Gastrointestinal: soft, non-tender, no distention, positive bowel sounds Musculoskeletal: no edema, pulses present Neurological: non-focal, normal sensation, moves all 4 limbs Lymphatic: no nodes Psychiatric: normal affect, A&O x 3 Skin: no rash, normal turgor Dx/Plan (1) Acute kidney injury Code(s): N17.9 - ACUTE KIDNEY FAILURE, UNSPECIFIED Status: Acute (2) Amphetamine abuse Code(s): F15.10 - OTHER STIMULANT ABUSE, UNCOMPLICATED Status: Acute (3) Drug overdose, intentional Code(s): T50.902A - POISONING BY UNSP DRUG/MEDS/BIOL SUBST, SELF-HARM, INIT Status: Acute (4) Hypokalemia Code(s): E87.6 - HYPOKALEMIA Status: Acute (5) Hyponatremia Code(s): E87.1 - HYPO-OSMOLALITY AND HYPONATREMIA Status: Acute (6) Rhabdomyolysis Code(s): M62.82 - RHABDOMYOLYSIS Status: Acute (7) Suicidal ideations Code(s): R45.851 - SUICIDAL IDEATIONS Status: Acute (8) Sepsis Code(s): A41.9 - SEPSIS, UNSPECIFIED ORGANISM Status: Acute - Plan cont current plan of care, continue antibiotics * medication reviewed as below * symptomatic treatment * will consult ID * if ID ok, will consider discharge to psych after [facility] evaluation. Review of Systems - Review of Systems ENT: negative: Ear Pain, Ear Discharge, Nose Pain, Nose Discharge, Nose Congestion, Mouth Pain, Mouth Swelling, Throat Pain, Throat Swelling, Other Respiratory: negative: Cough, Dry, Shortness of Breath, Hemoptysis, SOB with Excertion, Pleuritic Pain, Sputum, Wheezing Cardiovascular: negative: chest pain, palpitations, orthopnea, paroxysmal nocturnal dyspnea, edema, light headedness, other Gastrointestinal: negative: Nausea, Vomiting, Abdominal Pain, Diarrhea, Constipation, Melena, Hematochezia, Other Genitourinary: negative: Dysuria, Frequency, Incontinence, Hematuria, Retention , Other Musculoskeletal: negative: Neck Pain, Shoulder Pain, Arm Pain, Back Pain, Hand Pain, Leg Pain, Foot Pain, Other Skin: negative: Rash, Lesions, [place], Bruising, Other - Medications/Allergies Allergies/Adverse Reactions: Allergies Allergy/AdvReac Type Severity Reaction Status Date / Time acetaminophen [From Tylenol] Allergy has liver Verified 06/26/18 23:06 tumor/hard on it adhesive Allergy Hives Verified 06/26/18 23:06 ketorolac tromethamine Allergy Hives Verified 06/26/18 23:06 [From Toradol] tramadol Allergy Hives Verified 06/26/18 23:06 Medications: Current Medications Acetaminophen (Tylenol) 1,000 mg PO Q6H PRN PRN Reason: TEMPERATURE Last Admin: 08/25/18 04:14 Dose: 1,000 mg Albuterol/Ipratropium (Duoneb) 3 ml NEB [id number] [facility] Last Admin: 08/26/18 06:22 Dose: Not Given Alprazolam (Xanax) 2 mg PO Q8HR [facility] Last Admin: 08/26/18 05:46 Dose: 2 mg Artificial Tears (Tears Naturale) 2 drop EA EYE PRN PRN PRN Reason: Dry Eyes Atenolol (Tenormin) 50 mg PO DAILY [facility] Last Admin: 08/26/18 08:31 Dose: 50 mg Buspirone HCl (Buspar) 20 mg PO BID [facility] Last Admin: 08/26/18 08:32 Dose: 20 mg Calcium Carbonate (Tums) 1,000 mg PO Q4H PRN PRN Reason: Heartburn or Indigestion Citalopram Hydrobromide (Celexa) 20 mg PO HS [facility] Last Admin: 08/25/18 20:26 Dose: 20 mg Clonazepam (Klonopin) 0.5 mg PO BID [facility] Last Admin: 08/26/18 08:33 Dose: 0.5 mg Al Hydroxide/Mg Hydroxide 60 ml/ Lidocaine HCl 30 ml/Diphenhydramine HCl 75 mg 0 ml SSW Q6H PRN PRN Reason: Mouth Irritation Last Admin: 08/24/18 20:03 Dose: 15 ml Divalproex Sodium (Depakote) 1,500 mg PO HS [facility] Last Admin: 08/25/18 20:27 Dose: 1,500 mg Enoxaparin Sodium (Lovenox) 40 mg SC 2100 [facility] Last Admin: 08/25/18 20:28 Dose: 40 mg Guaifenesin (Robitussin Sf) 200 mg PO Q4H PRN PRN Reason: Cough Last Admin: 08/26/18 02:40 Dose: 200 mg Guaifenesin (Mucinex) 600 mg PO Q12HR [facility] Last Admin: 08/26/18 08:33 Dose: 600 mg Ceftriaxone Sodium 1 gm/ (Sodium Chloride) 100 mls @ 200 mls/hr IVPB 1200 [facility] Last Admin: 08/25/18 11:45 Dose: 100 mls Vancomycin HCl 1.25 gm/ Sodium (Chloride) 250 mls @ 166.667 mls/hr IVPB 0200, 1000,1800 [facility] Last Admin: 08/26/18 09:54 Dose: 250 mls Ibuprofen (Motrin) 400 mg PO Q6H PRN PRN Reason: Mild Pain (1-3) Last Admin: 08/24/18 07:17 Dose: 400 mg Levothyroxine Sodium (Synthroid) 125 mcg PO 0600 [facility] Last Admin: 08/26/18 05:46 Dose: 125 mcg Loperamide HCl (Imodium) 2 mg PO PRN PRN PRN Reason: Diarrhea/Loose Stools Loratadine (Claritin) 10 mg PO DAILYPRN PRN PRN Reason: Sinus Symptoms Lorazepam (Ativan) 2 mg SLOW IVP Q6H PRN PRN Reason: ANXIETY. Last Admin: 08/26/18 10:35 Dose: 2 mg Mineral Oil/White Petrolatum (Eucerin Cream) 0 gm TOP BIDPRN PRN PRN Reason: Dry Skin Mometasone Furoate/Formoterol Fumar (Dulera 200 Mcg/5 Mcg Inhaler) 2 puff INH BID-RT [facility] Last Admin: 08/26/18 06:22 Dose: Not Given Ondansetron HCl (Zofran Odt) 4 mg PO Q6H PRN PRN Reason: Nausea/Vomiting Ondansetron HCl (Zofran) 4 mg IVP Q6H PRN PRN Reason: Nausea/Vomiting Prednisone (Prednisone) 20 mg PO QA-[facility] Stop: 08/31/18 08:01 Last Admin: 08/26/18 08:31 Dose: 20 mg Senna/Docusate Sodium (Senokot S) 2 tab PO BID PRN PRN Reason: Constipation Sodium Chloride (Flush - Normal Saline) 10 ml IVF PRN PRN PRN Reason: Saline Flush Sodium Chloride ([place] Nasal [place] 0.65%) 0 ml EA NARE QIDPRN PRN PRN Reason: Nasal Congestion Throat Lozenges (Cepastat Lozenges) 1 temo PO Q2H PRN PRN Reason: Sore Throat Venlafaxine HCl (Effexor Xr) 75 mg PO DAILY [facility] Last Admin: 08/26/18 08:33 Dose: Not Given
[2018-08-26] MEDS: cefTRIAXone\\ROCEPHIN 1 GM in Sodium Chloride 0.9% 100 ML IVPB SCH (12:27)
[2018-08-26] MEDS ORDERED: Labetalol HCl 100 MG/20 ML VIAL SLOW IVP PRN (12:35)
[2018-08-26 17:36] LABS: Vancomycin, Trough 20.1 ug/mL
[2018-08-26] MEDS: Divalproex Sodium DR 500 MG TAB PO SCH (20:13)
[2018-08-26] MEDS: Citalopram 20 MG TAB PO SCH (20:14)
[2018-08-26] MEDS: Enoxaparin Sodium 40 MG/0.4 ML SYRINGE SC SCH (20:15)
[2018-08-26] MEDS: Ibuprofen 200 MG TAB PO PRN (21:37)
--- NOTE | 2018-08-27 00:52 | CON ---
DATE OF CONSULTATION: 08/26/2018 REASON FOR CONSULTATION: Bacteremia. HISTORY OF PRESENT ILLNESS: A 37-year-old patient admitted 2 days ago, who has a history of bipolar disorder with severe depressive episodes and suicidal attempts in the past, currently on electroconvulsive therapy elsewhere, who was admitted with altered mental status and supposedly overdosed on Soma. Apparently, she had an argument with a friend and took the medication afterwards. Initial vital signs revealed a normal temperature, pulse rate of 101, and blood pressure 97/72. She had sinus tachycardia. Initial lab data; the white cell count 4.1 with 11% neutrophils with a total neutrophil count of 400. Chemistry revealed sodium 133, creatinine 1.24, glucose 120 with AST 44. Urinalysis was normal. Toxicology showed amphetamines, benzodiazepinic drugs, and salicylates. The patient has been given ceftriaxone, prednisone, and vancomycin. Currently, she is awake and she is requesting to be discharged. She denies any headaches. No sore throat, odynophagia, or dysphagia. No cough. She has a frequent posterior nasal drip. No chest pain. No abdominal pain or diarrhea. Voiding without difficulty. No other neurological symptoms. PAST MEDICAL HISTORY: Bipolar disorder, depression, suicide attempts in the past, Crohn disease, which is not being treated at this time; apparently, she is supposed to see Dr. Mansfield and has had been in the past on various medications; asthma, PTSD. PAST SURGICAL HISTORY: Cholecystectomy, hysterectomy, tonsillectomy, orthopedic surgery, neck surgery, ovarian torsion. ALLERGIES: 1. TYLENOL. 2. TORADOL. 3. TRAMADOL. CURRENT MEDICATIONS: 1. She recalls Depakote or valproic acid, she has been taking for a year or two. 2. She is on lisinopril. 3. Currently also on ceftriaxone. SOCIAL HISTORY: History of drug use in the past. Drinks alcoholic beverages occasionally. Lives with family. She is undergoing an ECT therapy elsewhere in psychiatric clinic. PHYSICAL EXAMINATION: VITAL SIGNS: With a T-max 98.7, BP 150/85, pulse 76, respirations 18, O2 saturation 94%. SKIN: Not remarkable. No lymphadenopathy. HEENT: Ocular movements conjugate. Oral cavity normal. NECK: Supple. LUNGS: Symmetric breath sounds. I did not hear any crackles or wheezing. PARR: S1 and S2. Regular rate. No S3 or S4. ABDOMEN: Soft, not distended or tender. No ascites. No bladder distention. MUSCULOSKELETAL: No joint inflammatory activity. EXTREMITIES: No edema. Pulses 1+ in dorsalis pedis. Moves all extremities equally. NEUROLOGIC: Cognitive function appears to be intact. LABORATORY DATA: Latest labs showed a white cell count of 2.5 with total absolute neutrophil count of about 250. She has 1 set out of 4 with Gram-positive rods. Urine culture, no growth. Chest x-ray with no acute cardiopulmonary disease. ASSESSMENT: 1. Bipolar disorder with suicide attempt in the past. 2. Presumed Soma overdose with altered mental status. 3. Fever. 4. Neutropenia. 5. Bacteremia. DISCUSSION: The bacteremia is most likely a contaminant, probably either corynebacterium or Bacillus species. The main concern here is the neutropenia in the face of valproic acid intake, which can be associated with neutropenia. I would advise discontinuation of valproic acid at this point in time, consultation with her psychiatrist, and then monitoring the recovery of her neutrophil count. Job ID: [id number] [facility]
[2018-08-27] MEDS: Vancomycin HCl 1.25 GM in Sodium Chloride 0.9% 250 ML 250 ML IVPB SCH (02:21)
[2018-08-27] MEDS: Lorazepam 2 MG/ML VIAL SLOW IVP PRN ×2 (05:35→11:18)
[2018-08-27] MEDS: Levothyroxine Sodium 125 MCG TAB PO SCH (05:35)
[2018-08-27] MEDS: ALPRAZolam 1 MG TAB PO SCH ×2 (06:29→13:26)
[2018-08-27 08:28] LABS: ALT (SGPT) Less than 7 U/L (8-55); AST (SGOT) 8 U/L (5-34); Albumin 2.9 g/dL (3.5-5.0); Alkaline Phosphatase 55 U/L (40-150); Anion Gap 13 mmol/L (10-20); BUN (Urea Nitrogen) Less than 4 mg/dL (7.0-18.7); Bilirubin, Total Less than 0.2 mg/dL (0.2-1.2); CK (CPK) 38 U/L (29-168); Calc. Creatinine Clearance 144 mL/min (70-130); Calcium 8.2 mg/dL (7.8-10.44); Carbon Dioxide 29 mmol/L (22-29); Chloride 105 mmol/L (98-107); Estimated GFR-MDRD Greater than 90; Globulin 2.6 g/dL (2.4-3.5); Glucose 95 mg/dL (70-105); Protein, Total 5.5 g/dL (6.0-8.3); Sodium 144 mmol/L (136-145)
[2018-08-27 08:34] LABS: Potassium 2.5 mmol/L (3.5-5.1)
[2018-08-27 09:11] LABS: Hemoglobin 10.5 g/dL (12.0-16.0); Mean Corpuscular HGB CONC 33.8 g/dL (32.0-36.0); Mean Corpuscular Hemoglobin 32.5 pg (27.0-31.0); Mean Corpuscular Volume 96.2 fL (78.0-98.0); Mean Platelet Volume 8.2 fL (7.4-10.4); Platelet Count 322 thou/uL (130-400); RBC Distribution Width 12.4 % (11.5-14.5); Red Blood Cell (RBC) Count 3.23 mill/uL (4.20-5.40); White Blood Cell (WBC) Count 8.4 thou/uL (4.8-10.8)
[2018-08-27 09:18] LABS: Band 5 % (5-11); Eosinophils 8 % (0-10); Lymphocytes 64 % (21-51); MDiff Complete? YES; Metamyelocyte 2 % (0-0); Monocytes 5 % (0-10); Myelocyte 1 % (0-0); Neutrophil 12 % (42-75); Polychromasia SLIGHT = 2-3 cells (100X) (0-2/hpf); Reactive Lymphocytes 3 % (0-10)
[2018-08-27] MEDS: busPIRone HCl 10 MG TAB PO SCH (09:38)
[2018-08-27] MEDS: clonazePAM 0.5 MG TAB PO SCH (09:38)
[2018-08-27] MEDS: Atenolol 50 MG TAB PO SCH (09:38)
[2018-08-27] MEDS: predniSONE 20 MG TAB PO SCH (09:38)
[2018-08-27] MEDS: Venlafaxine HCl XR 75 MG CAP PO SCH ×2 (09:38→09:41)
[2018-08-27] MEDS: guaiFENesin ER 600 MG TAB PO SCH (09:38)
[2018-08-27] MEDS: Mometasone/Formoterol 120 PUFF INHALER INH SCH (10:16)
[2018-08-27] MEDS ORDERED: Magnesium Sulfate 4 GM in Sodium Chloride 0.9% 250 ML 250 ML IVPB SCH (10:30)
[2018-08-27] MEDS ORDERED: Potassium Chloride 20 MEQ TAB PO SCH ×2 (10:45→12:15)
--- NOTE | 2018-08-27 13:15 | PDOC.PN ---
- Subjective Encounter Start Date: 08/27/18 Encounter Start Time: 10:00 Patient seen and examined. No new complaints. No overnight events - Objective Resuscitation Status - Order Detail: 08/23/18 01:03 Resuscitation Status Routine Resuscitation Status: FULL: Full Resuscitation MAR Reviewed: Yes Vital Signs & Weight: Vital Signs (12 hours) Temp Pulse Resp BP BP Pulse Ox 08/27/18 11:02 97.8 F 82 20 187/85 H 98 08/27/18 08:00 95 08/27/18 07:30 97.9 F 79 18 164/85 H 95 08/27/18 05:00 97.6 F 76 18 164/95 H 97 Weight Admit Weight 177 lb 14.4 oz Weight 177 lb 14.4 oz I&O: 08/26/18 08/27/18 08/28/18 06:59 06:59 06:59 Intake Total 5370 2430 Balance 5370 2430 Result Diagrams: 08/27/18 07:36 08/27/18 07:36 Phys Exam - Physical Examination Constitutional: NAD HEENT: PERRLA, moist MMs, sclera anicteric Neck: no JVD, supple Respiratory: no wheezing, no rales, no rhonchi Cardiovascular: RRR, no significant murmur, no rub Gastrointestinal: soft, non-tender, no distention, positive bowel sounds Musculoskeletal: no edema, pulses present Neurological: non-focal, normal sensation Lymphatic: no nodes Psychiatric: normal affect, A&O x 3 Skin: no rash, normal turgor Dx/Plan (1) Acute kidney injury Code(s): N17.9 - ACUTE KIDNEY FAILURE, UNSPECIFIED Status: Resolved (2) Amphetamine abuse Code(s): F15.10 - OTHER STIMULANT ABUSE, UNCOMPLICATED Status: Acute (3) Drug overdose, intentional Code(s): T50.902A - POISONING BY UNSP DRUG/MEDS/BIOL SUBST, SELF-HARM, INIT Status: Acute (4) Hypokalemia Code(s): E87.6 - HYPOKALEMIA Status: Acute (5) Hyponatremia Code(s): E87.1 - HYPO-OSMOLALITY AND HYPONATREMIA Status: Acute (6) Rhabdomyolysis Code(s): M62.82 - RHABDOMYOLYSIS Status: Acute (7) Suicidal ideations Code(s): R45.851 - SUICIDAL IDEATIONS Status: Acute (8) Sepsis Code(s): A41.9 - SEPSIS, UNSPECIFIED ORGANISM Status: Ruled-out - Plan cont current plan of care * dc rocephin * wbc improved * replace K and mag * consult [facility] * discharge home with safety plan vs psych later today * medication reviewed as below * symptomatic treatment. Review of Systems - Review of Systems ENT: negative: Ear Pain, Ear Discharge, Nose Pain, Nose Discharge, Nose Congestion, Mouth Pain, Mouth Swelling, Throat Pain, Throat Swelling, Other Respiratory: negative: Cough, Dry, Shortness of Breath, Hemoptysis, SOB with Excertion, Pleuritic Pain, Sputum, Wheezing Cardiovascular: negative: chest pain, palpitations, orthopnea, paroxysmal nocturnal dyspnea, edema, light headedness, other Gastrointestinal: negative: Nausea, Vomiting, Abdominal Pain, Diarrhea, Constipation, Melena, Hematochezia, Other Genitourinary: negative: Dysuria, Frequency, Incontinence, Hematuria, Retention , Other Musculoskeletal: negative: Neck Pain, Shoulder Pain, Arm Pain, Back Pain, Hand Pain, Leg Pain, Foot Pain, Other - Medications/Allergies Allergies/Adverse Reactions: Allergies Allergy/AdvReac Type Severity Reaction Status Date / Time acetaminophen [From Tylenol] Allergy has liver Verified 06/26/18 23:06 tumor/hard on it adhesive Allergy Hives Verified 06/26/18 23:06 ketorolac tromethamine Allergy Hives Verified 06/26/18 23:06 [From Toradol] tramadol Allergy Hives Verified 06/26/18 23:06 Medications: Current Medications Acetaminophen (Tylenol) 1,000 mg PO Q6H PRN PRN Reason: TEMPERATURE Last Admin: 08/25/18 04:14 Dose: 1,000 mg Albuterol/Ipratropium (Duoneb) 3 ml NEB [id number] [facility] Last Admin: 08/27/18 10:17 Dose: Not Given Alprazolam (Xanax) 2 mg PO Q8HR [facility] Last Admin: 08/27/18 06:29 Dose: Not Given Artificial Tears (Tears Naturale) 2 drop EA EYE PRN PRN PRN Reason: Dry Eyes Atenolol (Tenormin) 50 mg PO DAILY [facility] Last Admin: 08/27/18 09:38 Dose: 50 mg Buspirone HCl (Buspar) 20 mg PO BID [facility] Last Admin: 08/27/18 09:38 Dose: 20 mg Calcium Carbonate (Tums) 1,000 mg PO Q4H PRN PRN Reason: Heartburn or Indigestion Citalopram Hydrobromide (Celexa) 20 mg PO HS [facility] Last Admin: 08/26/18 20:14 Dose: 20 mg Clonazepam (Klonopin) 0.5 mg PO BID [facility] Last Admin: 08/27/18 09:38 Dose: 0.5 mg Al Hydroxide/Mg Hydroxide 60 ml/ Lidocaine HCl 30 ml/Diphenhydramine HCl 75 mg 0 ml SSW Q6H PRN PRN Reason: Mouth Irritation Last Admin: 08/24/18 20:03 Dose: 15 ml Divalproex Sodium (Depakote) 1,500 mg PO HS [facility] Last Admin: 08/26/18 20:13 Dose: 1,500 mg Enoxaparin Sodium (Lovenox) 40 mg SC 2100 [facility] Last Admin: 08/26/18 20:15 Dose: 40 mg Guaifenesin (Robitussin Sf) 200 mg PO Q4H PRN PRN Reason: Cough Last Admin: 08/26/18 21:38 Dose: 200 mg Guaifenesin (Mucinex) 600 mg PO Q12HR [facility] Last Admin: 08/27/18 09:38 Dose: 600 mg Magnesium Sulfate 4 gm/ Sodium (Chloride) 258 mls @ 86 mls/hr IVPB NOW [facility] Stop: 08/27/18 16:00 Last Admin: 08/27/18 11:17 Dose: 258 mls Ibuprofen (Motrin) 400 mg PO Q6H PRN PRN Reason: Mild Pain (1-3) Last Admin: 08/26/18 21:37 Dose: 400 mg Labetalol HCl (Normodyne) 20 mg SLOW IVP Q4H PRN PRN Reason: SBP Greater Than 170 Last Admin: 08/26/18 15:31 Dose: 20 mg Levothyroxine Sodium (Synthroid) 125 mcg PO 0600 [facility] Last Admin: 08/27/18 05:35 Dose: 125 mcg Loperamide HCl (Imodium) 2 mg PO PRN PRN PRN Reason: Diarrhea/Loose Stools Loratadine (Claritin) 10 mg PO DAILYPRN PRN PRN Reason: Sinus Symptoms Lorazepam (Ativan) 2 mg SLOW IVP Q6H PRN PRN Reason: ANXIETY. Last Admin: 08/27/18 11:18 Dose: 2 mg Mineral Oil/White Petrolatum (Eucerin Cream) 0 gm TOP BIDPRN PRN PRN Reason: Dry Skin Mometasone Furoate/Formoterol Fumar (Dulera 200 Mcg/5 Mcg Inhaler) 2 puff INH BID-RT [facility] Last Admin: 08/27/18 10:16 Dose: Not Given Ondansetron HCl (Zofran Odt) 4 mg PO Q6H PRN PRN Reason: Nausea/Vomiting Ondansetron HCl (Zofran) 4 mg IVP Q6H PRN PRN Reason: Nausea/Vomiting Potassium Chloride (Klor-Con) 40 meq PO NOW [facility] Stop: 08/27/18 14:00 Prednisone (Prednisone) 20 mg PO QAM-[facility] Stop: 08/31/18 08:01 Last Admin: 08/27/18 09:38 Dose: 20 mg Senna/Docusate Sodium (Senokot S) 2 tab PO BID PRN PRN Reason: Constipation Sodium Chloride (Flush - Normal Saline) 10 ml IVF PRN PRN PRN Reason: Saline Flush Sodium Chloride ([place] Nasal [place] 0.65%) 0 ml EA NARE QIDPRN PRN PRN Reason: Nasal Congestion Throat Lozenges (Cepastat Lozenges) 1 temo PO Q2H PRN PRN Reason: Sore Throat Venlafaxine HCl (Effexor Xr) 75 mg PO DAILY [facility] Last Admin: 08/27/18 09:41 Dose: Not Given
--- NOTE | 2018-08-27 13:27 | DIS ---
DATE OF ADMISSION: 08/23/2018 DATE OF DISCHARGE: 08/27/2018 PRIMARY CARE PHYSICIAN: [facility] Call admission. DISCHARGE DISPOSITION: Pending, either psych facility or home depending upon [facility] recommendation. PRIMARY DISCHARGE DIAGNOSES: 1. Intentional drug overdose. 2. Suicidal attempt with drug overdose. 3. Suicidal ideation. 4. Acute kidney failure. 5. Hypokalemia. 6. Hypomagnesemia. 7. Rhabdomyolysis. 8. Leukopenia. 9. Hyponatremia. SECONDARY DISCHARGE DIAGNOSES: 1. Anxiety and depression. 2. Chronic pain disorder. 3. Hypothyroidism. 4. Hypertension. PRIMARY PROCEDURE/OPERATION: None. RADIOLOGICAL INVESTIGATION: Chest x-ray normal. SIGNIFICANT LABORATORY DATA: WBC 8.4, hemoglobin 10.5, platelets 322. Sodium 144, potassium 2.5, BUN less than 4, creatinine 0.69, magnesium 1.2. LFT normal. TSH 0.18. Urinalysis normal. Urine drug screen positive for amphetamine, methamphetamine, and benzo. Blood culture negative. Urine culture negative. Streptococcal screen negative. DISCHARGE MEDICATIONS: 1. Xanax 2 mg p.o. q.8 hourly p.r.n. 2. Atenolol 50 mg daily. 3. BuSpar 30 mg b.i.d. 4. Celexa 30 mg at bedtime. 5. Depakote 1500 mg p.o. at bedtime. 6. Synthroid 125 mcg p.o. daily. 7. Lisinopril 40 mg p.o. daily. CONTRAINDICATION: None. CODE STATUS: Full code. INPATIENT MEDICAL CERTIFICATION SPECIALIST: Dr. Jasso was following because the patient was admitted in [facility]. Dr. Singleton was consulted for one positive blood culture for gram-positive reilly and he is recommended that, that culture is contaminant. TEST RESULTS PENDING ON DISCHARGE: None. ALLERGIES: ACETAMINOPHEN, ADHESIVE, TORADOL, BACTRIM, AND TRAMADOL. DISCHARGE PLAN: Posthospital, the patient will be discharged to inpatient psych facility versus home depending upon [facility] recommendation. HOSPITAL COURSE: A 37-year-old female who was admitted by Dr. Blu Collazo. Please see his H and P for further details. This patient has underlying anxiety disorder. She had suicidal ideation and she overdosed with intention of suicidal attempt with medication. Her urine drug screen was positive for amphetamine, methamphetamine, and benzos. The patient told us that she took Soma tablets several pills. The patient was closely observed in IMCU and subsequently, she was transferred to medical floor. She was requiring bedside sitter. While in hospital, we noted that she was extremely anxious, requiring several benzodiazepines. The patient started getting fever and that is why we did blood culture, urine culture, streptococcal group screen, and that all came back negative. One of the blood cultures from port was positive for gram-positive reilly and that is why we consulted Dr. Singleton and he was thinking that this is most likely related with contaminant. We gave her antibiotic therapy while in hospital and her fever subsided. She had initially leukopenia that was also improved. The patient had abnormal electrolytes that were replaced while in the hospital. She was treated with IV fluid while in the hospital. On discharge, we are continuing all her previous medication. Today, the patient is medically stable. We are replacing her electrolytes and [facility] will evaluate this patient today. Depending upon [facility] evaluation, we will consider discharging to home versus psych facility. The patient is seen and examined at bedside today. All review of systems reviewed with her and negative. PHYSICAL EXAMINATION: VITAL SIGNS: Currently temperature 97.9, pulse 79, respiratory rate 18, saturation 95%, blood pressure 164/85. Weight 177 pounds. GENERAL: The patient is currently alert, awake. No obvious acute distress. HEENT: Head is normocephalic and atraumatic. Eyes; pupils round, reactive to light. Extraocular muscle intact. ENT; oropharynx within normal limits. Moist mucous membranes. No oral lesion. No pharyngeal erythema. No exudate. NECK: Supple. No JVD. No thyromegaly. No carotid bruit. LUNGS: Clear to auscultation without any rhonchi or rales. CARDIAC: S1 and S2 appear regular without any murmur. ABDOMEN: Soft and benign. EXTREMITIES: No edema. NEUROLOGIC: Nonfocal examination. Job ID: [id number]
[2018-08-27 15:40] VITALS: BP 184/109; TEMP 98.2
== END 2018-08-27 15:40 | disposition home or self-care (01) | DRG 917 ==
LOC: ERS 17:49 → IMCU/EMU 21:45 → OBSVTOIN 08-23 13:07 → T4-B 08-23 16:39
PROVIDERS: ADMIT Internal Medicine; ATTEND Internal Medicine
DX: T42.8X2A Poisoning by antiparkinsonism drugs and other central muscle-tone depressants, intentional self-harm, initial encounter (principal); J96.90 Respiratory failure, unspecified, unspecified whether with hypoxia or hypercapnia; N17.9 Acute kidney failure, unspecified; E87.1 Hypo-osmolality and hyponatremia; K50.90 Crohn's disease, unspecified, without complications; M62.82 Rhabdomyolysis; E86.0 Dehydration; E87.6 Hypokalemia; F41.9 Anxiety disorder, unspecified; F32.9 Major depressive disorder, single episode, unspecified; F43.10 Post-traumatic stress disorder, unspecified; F31.9 Bipolar disorder, unspecified; G89.4 Chronic pain syndrome; E03.9 Hypothyroidism, unspecified; J45.20 Mild intermittent asthma, uncomplicated; F15.10 Other stimulant abuse, uncomplicated; F13.10 Sedative, hypnotic or anxiolytic abuse, uncomplicated; F17.210 Nicotine dependence, cigarettes, uncomplicated; I10 Essential (primary) hypertension; D70.9 Neutropenia, unspecified
CPT/HCPCS: 36415; 51702; 71045; 80048; 80053; 80202; 80306; 80307; 81003; 81025; 82550; 83735; 84100; 84443; 85025; 87040; 87081; 87086; 87430; 87804; 93005; 94640; 96360; 96361; A4353; J0696; J1642; J1650; J2060; J2920; J3370; J3475; J7050; J7506; J7620

== ENCOUNTER 2018-10-11 23:59 | Emergency (ER) | payer MEDICARE, OTHER ==
[2018-10-12 00:58] LABS: #Eosinphils 0.2 thou/uL (0.0-0.7); #Lymphocytes 3.9 thou/uL (1.20-3.40); #Monocytes 0.7 thou/uL (0.11-0.59); %Basophils 0.3 % (0.0-1.0); %Eosinophils 1.9 % (0.0-10.0); %Lymphocytes 36.1 % (21.0-51.0); %Monocytes 6.6 % (0.0-10.0); Hemoglobin 12.5 g/dL (12.0-16.0); Mean Corpuscular HGB CONC 32.4 g/dL (32.0-36.0); Mean Corpuscular Volume 98.7 fL (78.0-98.0); Mean Platelet Volume 8.7 fL (7.4-10.4); Platelet Count 196 thou/uL (130-400); RBC Distribution Width 12.5 % (11.5-14.5); Red Blood Cell (RBC) Count 3.89 mill/uL (4.20-5.40); White Blood Cell (WBC) Count 10.9 thou/uL (4.8-10.8)
[2018-10-12 01:25] LABS: ALT (SGPT) Less than 7 U/L (8-55); AST (SGOT) 8 U/L (5-34); Acetaminophen Less than 6.0 mcg/mL (10.0-30.0); Albumin 3.8 g/dL (3.5-5.0); Alcohol Less than 10 mg/dL (Less than 10); Alkaline Phosphatase 64 U/L (40-150); Anion Gap 15 mmol/L (10-20); BUN (Urea Nitrogen) 12 mg/dL (7.0-18.7); Bilirubin, Total 0.3 mg/dL (0.2-1.2); Calc. Creatinine Clearance 0 mL/min (70-130); Calcium 8.4 mg/dL (7.8-10.44); Carbon Dioxide 18 mmol/L (22-29); Chloride 108 mmol/L (98-107); Estimated GFR-MDRD 83; Globulin 2.6 g/dL (2.4-3.5); Glucose 92 mg/dL (70-105); Potassium 4.3 mmol/L (3.5-5.1); Protein, Total 6.4 g/dL (6.0-8.3); Salicylate Less than 8.0 mg/dL (15.0-30.0); Sodium 137 mmol/L (136-145)
[2018-10-12 04:34] LABS: Bilirubin Negative (Negative); Blood, Urine Negative (Negative); Clarity CLEAR (Clear); Glucose, Urine (Dipstick) Negative (Negative); Leukocyte Negative (Negative); Nitrite Negative (Negative); Protein, Urine (Dipstick) Negative (Neg-Trace); pH, Urine 6.5 (5.0-9.0)
[2018-10-12 04:43] LABS: Amphetamine Not Detected (NotDetected); Barbiturates Screen Not Detected (NotDetected); Benzodiazepine Screen Not Detected (NotDetected); Cocaine Metabolite Screen Not Detected (NotDetected); Medtox Control Line Valid? VALID (VALID); Medtox Reader # READER 1; Methadone Not Detected (NotDetected); Methamphetamine Not Detected (NotDetected); Opiate Screen Not Detected (NotDetected); Oxycodone Screen Not Detected (NotDetected); Phencyclidine (PCP) Not Detected (NotDetected); THC/Cannabinoid Screen Not Detected (NotDetected); Tricyclic Screen Not Detected (NotDetected)
== END 2018-10-12 05:47 ==
LOC: ERS 23:59 → EEVIPCON 23:59 → ERS 10-12 05:47
DX: R55 Syncope and collapse (principal); F32.9 Major depressive disorder, single episode, unspecified; K58.9 Irritable bowel syndrome, unspecified; E03.9 Hypothyroidism, unspecified; J45.909 Unspecified asthma, uncomplicated; F43.10 Post-traumatic stress disorder, unspecified; F17.210 Nicotine dependence, cigarettes, uncomplicated
CPT/HCPCS: 36415; 80053; 80306; 80307; 81003; 84484; 85025; 93005; 96360

== ENCOUNTER 2018-12-09 00:37 | Emergency (ER) | payer MEDICARE, OTHER ==
[2018-12-09 01:48] LABS: #Basophils 0.1 thou/uL (0.0-0.2); #Eosinphils 0.2 thou/uL (0.0-0.7); #Lymphocytes 4.3 thou/uL (1.20-3.40); #Monocytes 0.6 thou/uL (0.11-0.59); #Neutrophils 3.7 thou/uL (1.40-6.50); %Basophils 0.8 % (0.0-1.0); %Eosinophils 1.9 % (0.0-10.0); %Lymphocytes 48.1 % (21.0-51.0); %Monocytes 7.1 % (0.0-10.0); Hemoglobin 12.6 g/dL (12.0-16.0); Mean Corpuscular HGB CONC 33.7 g/dL (32.0-36.0); Mean Corpuscular Hemoglobin 33.4 pg (27.0-31.0); Mean Corpuscular Volume 99.1 fL (78.0-98.0); Mean Platelet Volume 8.3 fL (7.4-10.4); Platelet Count 246 thou/uL (130-400); RBC Distribution Width 11.9 % (11.5-14.5); Red Blood Cell (RBC) Count 3.77 mill/uL (4.20-5.40); White Blood Cell (WBC) Count 8.8 thou/uL (4.8-10.8)
[2018-12-09 02:12] LABS: ALT (SGPT) Less than 7 U/L (8-55); AST (SGOT) 9 U/L (5-34); Albumin 3.8 g/dL (3.5-5.0); Alkaline Phosphatase 68 U/L (40-150); Anion Gap 14 mmol/L (10-20); BUN (Urea Nitrogen) 19 mg/dL (7.0-18.7); Bilirubin, Total 0.2 mg/dL (0.2-1.2); Calc. Creatinine Clearance 0 mL/min (70-130); Calcium 9.3 mg/dL (7.8-10.44); Carbon Dioxide 26 mmol/L (22-29); Chloride 101 mmol/L (98-107); Estimated GFR-MDRD 53; Globulin 2.9 g/dL (2.4-3.5); Glucose 95 mg/dL (70-105); Lipase 18 U/L (8-78); Potassium 4.2 mmol/L (3.5-5.1); Protein, Total 6.7 g/dL (6.0-8.3); Sodium 137 mmol/L (136-145)
[2018-12-09 02:19] LABS: Bilirubin Negative (Negative); Blood, Urine Negative (Negative); Clarity CLEAR (Clear); Glucose, Urine (Dipstick) Negative (Negative); Leukocyte Negative (Negative); Nitrite Negative (Negative); Protein, Urine (Dipstick) Negative (Neg-Trace); Specific Gravity, Urine 1.005 (1.002-1.036); Urobilinogen 0.2 mg/dL (0.2-1.0)
[2018-12-09] MEDS ORDERED: Acetaminophen 500 MG TAB ONE (02:47)
[2018-12-09] MEDS ORDERED: Ondansetron PF 4 MG/2 ML Vial ONE (02:47)
== END 2018-12-09 03:27 | disposition home or self-care (01) ==
LOC: ERS 00:37
DX: R10.33 Periumbilical pain (principal); G89.29 Other chronic pain; M54.2 Cervicalgia; F32.9 Major depressive disorder, single episode, unspecified; E03.9 Hypothyroidism, unspecified; J45.909 Unspecified asthma, uncomplicated; F17.210 Nicotine dependence, cigarettes, uncomplicated; F43.10 Post-traumatic stress disorder, unspecified; Z79.899 Other long term (current) drug therapy
CPT/HCPCS: 51702; 80053; 81003; 83690; 85025; 87086; 96361; 96374; J2405

== ENCOUNTER 2019-01-11 01:13 | Emergency (ER) | payer MEDICARE, OTHER ==
[2019-01-11] MEDS ORDERED: Morphine 4 MG/ML VIAL ONE (02:45)
[2019-01-11 02:46] LABS: #Basophils 0.1 thou/uL (0.0-0.2); #Eosinphils 0.1 thou/uL (0.0-0.7); #Lymphocytes 4.1 thou/uL (1.20-3.40); #Monocytes 0.9 thou/uL (0.11-0.59); #Neutrophils 4.7 thou/uL (1.40-6.50); %Basophils 1.1 % (0.0-1.0); %Eosinophils 1.2 % (0.0-10.0); %Lymphocytes 41.2 % (21.0-51.0); %Monocytes 9.4 % (0.0-10.0); %Neutrophils 47.2 % (42.0-75.0); Hemoglobin 12.2 g/dL (12.0-16.0); Mean Corpuscular HGB CONC 33.9 g/dL (32.0-36.0); Mean Platelet Volume 8.2 fL (7.4-10.4); Platelet Count 263 thou/uL (130-400); RBC Distribution Width 11.8 % (11.5-14.5)
[2019-01-11 02:54] LABS: INR-International Normal Ratio 1.1; Prothrombin Time 14.1 SEC (12.0-14.7)
[2019-01-11 03:06] LABS: ALT (SGPT) 7 U/L (8-55); AST (SGOT) 15 U/L (5-34); Albumin 3.9 g/dL (3.5-5.0); Alkaline Phosphatase 73 U/L (40-150); Anion Gap 13 mmol/L (10-20); BUN (Urea Nitrogen) 9 mg/dL (7.0-18.7); Bilirubin, Total 0.5 mg/dL (0.2-1.2); Calc. Creatinine Clearance 0 mL/min (70-130); Carbon Dioxide 25 mmol/L (22-29); Chloride 104 mmol/L (98-107); Estimated GFR-MDRD 84; Glucose 79 mg/dL (70-105); Potassium 3.9 mmol/L (3.5-5.1); Protein, Total 6.9 g/dL (6.0-8.3); Sodium 138 mmol/L (136-145)
[2019-01-11 04:02] LABS: Bilirubin Negative (Negative); Blood, Urine Negative (Negative); Clarity CLEAR (Clear); Glucose, Urine (Dipstick) Negative (Negative); Leukocyte Negative (Negative); Nitrite Negative (Negative); Protein, Urine (Dipstick) Negative (Neg-Trace); Specific Gravity, Urine 1.006 (1.002-1.036); Urobilinogen 0.2 mg/dL (0.2-1.0)
[2019-01-11 04:13] LABS: Pregnancy Test - Urine (BHCG) Negative (Negative); Pregu Control Background? CLEAR/WHITE (CLR/WHITE); Pregu Control Bar Appear? YES (CONTROL BAR); Specific Gravity 1.006 (1.002-1.036)
--- NOTE | 2019-01-11 09:01 | RAD ---
ACUTE ABDOMINAL SERIES: INDICATION: History of swallowing a razor blade. COMPARISON: Prior exam dated 09/17/2015. FINDINGS: There is a right IJ chest wall port. The lungs are clear. Heart size is normal. No pneumothorax is evident. No pneumoperitoneum is demonstrated. There are surgical clips within the right upper quad rant of the abdomen. No visible radiopaque foreign body is noted. Bowel gas pattern is unobstructed . No acute osseous abnormality is noted. IMPRESSION: 1. No acute cardiopulmonary abnormality. 2. No acute abnormality is seen within the abdomen. 3. No visible radiopaque foreign body is evident suggestive of an ingested razorblade. 4. Cholecystectomy. POS: BH
== END 2019-01-11 04:30 | disposition home or self-care (01) ==
LOC: ERS 01:13 → EEVIPCON 01:13 → ERS 04:30
DX: R33.9 Retention of urine, unspecified (principal); E03.9 Hypothyroidism, unspecified; K58.9 Irritable bowel syndrome, unspecified; J45.909 Unspecified asthma, uncomplicated; F17.210 Nicotine dependence, cigarettes, uncomplicated; F43.10 Post-traumatic stress disorder, unspecified; F31.9 Bipolar disorder, unspecified; Z79.899 Other long term (current) drug therapy
CPT/HCPCS: 51702; 74022; 80053; 81003; 81025; 84443; 85025; 85610; 87086; 96372; 96374; J0500; J1642; J2270

== ENCOUNTER 2019-11-02 23:45 | Emergency (ER) | payer MEDICARE, MEDICAID | END 2019-11-03 00:46 | disposition home or self-care (01) | LOC: ERS 23:45 | DX: M62.830 Muscle spasm of back (principal); G89.29 Other chronic pain; I10 Essential (primary) hypertension; E03.9 Hypothyroidism, unspecified; J45.909 Unspecified asthma, uncomplicated; F31.9 Bipolar disorder, unspecified; F43.10 Post-traumatic stress disorder, unspecified; F17.210 Nicotine dependence, cigarettes, uncomplicated; Z79.899 Other long term (current) drug therapy | CPT/HCPCS: 99283 ==

== ENCOUNTER 2019-12-04 23:34 | Emergency (ER) | payer MEDICARE, MEDICAID ==
[2019-12-05] MEDS ORDERED: Lorazepam 2 MG/ML VIAL ONE (00:07)
[2019-12-05] MEDS ORDERED: Diazepam 10 MG/2 ML SYRINGE ONE ×2 (00:08→00:09)
[2019-12-05] MEDS ORDERED: diphenhydrAMINE 25 MG CAP ONE (01:06)
== END 2019-12-05 01:28 | disposition home or self-care (01) ==
LOC: ERS 23:34
DX: M62.830 Muscle spasm of back (principal); M25.512 Pain in left shoulder; I10 Essential (primary) hypertension; E03.9 Hypothyroidism, unspecified; J45.909 Unspecified asthma, uncomplicated; F31.9 Bipolar disorder, unspecified; F43.10 Post-traumatic stress disorder, unspecified; F17.210 Nicotine dependence, cigarettes, uncomplicated; Z79.899 Other long term (current) drug therapy
CPT/HCPCS: 96372; 99283; J2060; J3360; Q0163

== ENCOUNTER 2019-12-16 13:00 | Outpatient (CLI) | payer MEDICARE, MEDICAID | END 2019-12-16 13:01 | disposition home or self-care (01) | LOC: DTY/OP 13:00 | PROVIDERS: ATTEND Specialist | DX: Z01.818 Encounter for other preprocedural examination (principal); E66.01 Morbid (severe) obesity due to excess calories | CPT/HCPCS: 97802 ==